=== PATIENT | female | born 2000 | race Caucasian/White ===

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

== ENCOUNTER 2020-09-02 10:47 | Emergency (ER) | payer OTHER, SELFPAY ==
[2020-09-02 11:20] VITALS: BP 130/84; PULSE 79; RESP 14; TEMP 36.7; O2SAT 99; BMI 33.3
[2020-09-02 11:32] LABS: UTC Strep Screen (Rapid) Negative (Negative)
--- NOTE | 2020-09-02 11:56 | HMH.EDUTC ---
[facility] [place] Clinical Impression: Bronchitis Disposition: Home, Self-Care Condition on Discharge: Good Instructions: Acute Bronchitis Additional Instructions: Start antibiotic today. Be sure to complete entire prescription even if feeling better Tylenol and ibuprofen as needed for pain or fever Humidifier/vaporizer/hot steamy shower Follow-up with primary care tomorrow. Follow-up immediately in the ER of the [facility] for new or worsening symptoms or no noticeable improvement over the next 48-72 hours. Stop smoking Inhaler every 4-6 hours as needed. Should help open airways improved cough, wheezing, shortness of breath Blair Moore will not cause drowsiness to use at bedtime to help stop cough so that she can get some sleep Start steroids today. Helps with inflammation therefore coughing and wheezing. Follow directions on package. Patient states they have taken them before. self isolate until test results are known to be neg Prescriptions: predniSONE [Prednisone 20mg Tab] 20 mg PO BID #10 tab Transmission Status: Pending to [employer] # Azithromycin [Zithromax 250mg tab] 250 mg PO DIRECTED #6 tab Transmission Status: Pending to [employer] # Referrals: Celina Nunez PA [Primary Care Provider] - Time of Disposition: 12:00 Medical Decision Making - Dionicio Inquiry Pt receiving controlled substance: No Vital Signs: 09/02/20 11:20 Temperature 98.0 F Temperature Source Oral Pulse Rate [Right] 79 Respiratory Rate 14 Blood Pressure [Right Arm] 130/84 Blood Pressure Mean [Right Arm] 99 Blood Pressure Source [Right Arm] Automatic Cuff Blood Pressure Position [Right Arm] Sitting 02 Sat by Pulse Oximetry 99 - Lab Data Lab Results 09/02/20 11:24: Strep Scn Rapid Clinic Negative Orders (Tests/Meds): ORDERS Category Date Time Status Covid-19 Nasal PCR ([facility]) Routine Lab 09/02/20 10:58 Received Strep Screen Confirmation Stat Micro 09/02/20 11:24 Received [facility] [place] H[place] - General Chief complaint: Urgent [facility] Stated complaint: covid test Time Seen by Provider: 09/02/20 11:56 Mode of Arrival: Ambulatory Source of Information: Patient Limitations: No Limitations Description of Symptoms (Recalled from Triage Doc. by RN): pt c/o SHEIKH, weak, body aches, sore throat, productive cough with green sputum and fever. HEENT Symptoms (Recalled from RN notes): Yes (sore throat and SHEIKH) Resp Symptoms (Recalled from RN notes): Yes (productive cough with green sputum) Skin Symptoms (Recalled from RN notes): No MS Symptoms (Recalled from RN notes): No Functional Status (Recalled from RN notes): na - History of Present Illness Provider Complaint: 20 yr old female presents for sore throat, cough, yellow/green sputum, body aches and fever for 1 week - Related Data Home Medications Medication Instructions Recorded Confirmed norgestimate-ethinyl estradioL 1 tab PO ONCE 11/06/17 11/10/17 [Tri-Sprintec Tablet] Previous Rx's Medication Instructions Recorded Azithromycin [Zithromax 250mg 250 mg PO DIRECTED #6 tab 09/02/20 tab] predniSONE [Prednisone 20mg 20 mg PO BID #10 tab 09/02/20 Tab] Allergies Allergy/AdvReac Type Severity Reaction Status Date / Time No Known Allergies Allergy Verified 10/16/17 10:42 - Worker's Comp Is this a Worker's Comp case?: No [facility] History - Hepatitis A Screen Drug use history?: No High risk sexual behaviors?: No History of sexually transmitted infection?: No Currently employed?: No Childcare worker?: No Do you have indoor plumbing?: Yes Do you have electricity?: Yes Attestation statement:: This patient has been screened for Hepatitis A risk factors. I have reviewed the patient's past medical history: Yes Medical History: Reports:: Anxiety Denies:: Asthma, Depression, Diabetes Mellitus Type 1, Hypertension, Migraine, MRSA, Seizures Other Surgeries: Yes: No Previous Surg
[2020-09-02 12:02] VITALS: BP 139/81; PULSE 71; RESP 19; TEMP 36.6
[2020-09-02 12:24] LABS: UTC Influenza A Antigen Negative (Negative)
[2020-09-02 12:25] LABS: UTC Influenza B Antigen Negative (Negative)
--- NOTE | 2020-09-02 17:02 | PC.NURSE ---
PT NOTIFIED OF POSITIVE COVID TEST RESULT
== END 2020-09-02 12:31 | disposition home or self-care (01) ==
PROVIDERS: Emergency Provider Nurse Practitioner Family; PCP Physician Assistant
DX: U07.1 COVID-19 (principal); J20.9 Acute bronchitis, unspecified; F41.9 Anxiety disorder, unspecified
CPT/HCPCS: 87804; 87880; 99202; G0463; U0003

== ENCOUNTER 2021-07-18 14:20 | Emergency (ER) | payer OTHER, SELFPAY ==
[2021-07-18 15:22] VITALS: BP 147/78; PULSE 107; RESP 19; TEMP 37.5; O2SAT 100; BMI 29.6
--- NOTE | 2021-07-18 15:43 | HMH.EDUTC ---
[facility] – [place] Disposition Clinical Impression: Viral syndrome Pharyngitis Qualifiers: Pharyngitis/tonsillitis etiology: unspecified etiology Qualified Code(s): J02.9 - Acute pharyngitis, unspecified Disposition: Home, Self-Care Condition on Discharge: Good Instructions: DI for Strep Throat, DI for Viral Syndrome, DI for COVID-19 (Suspected or Confirmed ), Preventing the Spread of Coronavirus Discharge Instructions Additional Instructions: Drink plenty of fluids. Take tylenol or ibuprofen for pain or fever. Take the medications as directed. Follow up with your regular doctor. GO TO THE ER FOR ANY WORSENING SYMPTOMS Quarantine until you know the results of your covid-19 test. Notify your school or workplace of your results and follow their instructions regarding return to work/school. Prescriptions: Brompheniramine/Pseudoephed/Dm [Bromfed Dm Cough Syrup] 5 ml PO Q6HP PRN #240 ml PRN Reason: Cough Transmission Status: Received by [employer] #[id number] Amoxicillin [Amoxicillin 500mg Tab] 500 mg PO TID 10 Days #30 tab Transmission Status: Received by [employer] #[id number] predniSONE [Deltasone 10mg tablet] 10 mg PO BID 3 Days #6 tab Transmission Status: Received by [employer] #[id number] Referrals: Devendra Landis MD [Primary Care Provider] - Time of Disposition: 16:05 Medical Decision Making - Medical Records Medical records reviewed: No: I reviewed the patient's medical records. - Dionicio Inquiry Pt receiving controlled substance: No Vital Signs: 07/18/21 15:22 07/18/21 16:30 Temperature 99.5 F 99.5 F Temperature Source Oral Pulse Rate 107 H Pulse Rate [Left] 107 H Respiratory Rate 19 19 Blood Pressure 147/78 H Blood Pressure [Right Arm] 147/78 H Blood Pressure Mean [Right Arm] 101 02 Sat by Pulse Oximetry 100 - Lab Data Lab results reviewed: Yes: I reviewed the patient's lab results. Lab Results 07/18/21 15:06: Group A Strep Rapid Negative Orders (Tests/Meds): ORDERS Category Date Time Status Strep Screen Confirmation Stat Micro 07/18/21 15:06 Received [facility] [place] HPI - General Stated complaint: cough, sore throat Time Seen by Provider: 07/18/21 15:44 Mode of Arrival: Ambulatory Source of Information: Patient Limitations: No Limitations Description of Symptoms (Recalled from Triage Doc. by RN): PT C/O A SORE THROAT SINCE YESTERDAY. HEENT Symptoms (Recalled from RN notes): Yes Resp Symptoms (Recalled from RN notes): No Skin Symptoms (Recalled from RN notes): No MS Symptoms (Recalled from RN notes): No Functional Status (Recalled from RN notes): WNL - Related Data Previous Rx's Medication Instructions Recorded hydrochlorothiazide 25 mg tablet 25 mg PO DAILY #90 tab 06/26/21 Amoxicillin [Amoxicillin 500mg Tab] 500 mg PO TID 10 Days #30 tab 07/18/21 Brompheniramine/Pseudoephed/Dm 5 ml PO Q6HP PRN #240 ml 07/18/21 [Bromfed Dm Cough Syrup] predniSONE [Deltasone 10mg tablet] 10 mg PO BID 3 Days #6 tab 07/18/21 Allergies Allergy/AdvReac Type Severity Reaction Status Date / Time No Known Allergies Allergy Verified 06/26/21 14:58 - Worker's Comp Is this a Worker's Comp case?: No [facility] History - Hepatitis A Screen Drug use history?: No High risk sexual behaviors?: No History of sexually transmitted infection?: No Currently employed?: No Childcare worker?: No Do you have indoor plumbing?: Yes Do you have electricity?: Yes Attestation statement:: This patient has been screened for Hepatitis A risk factors. I have reviewed the patient's past medical history: Yes Medical History: Reports:: Anxiety, Hypertension Denies:: Asthma, Depression, Diabetes Mellitus Type 1, Migraine, MRSA, Seizures Other Surgeries: Yes: No Previous Surgery Amputation: No Fractures: No - Social History Smoking Status: Current every day smoker Tobacco Type: cigarettes # Packs/Day (cigarettes): 1 Alcohol Intake: never Substance Use Type: den
[2021-07-18 15:45] LABS: Strep Scrn Group A (Rapid) Negative (Negative)
[2021-07-18 16:30] VITALS: BP 147/78; PULSE 107; RESP 19; TEMP 37.5
== END 2021-07-18 16:31 | disposition home or self-care (01) ==
PROVIDERS: Emergency Provider Nurse Practitioner Family; PCP Emergency Medicine
DX: B34.9 Viral infection, unspecified (principal); J02.9 Acute pharyngitis, unspecified; Z20.822 Contact with and (suspected) exposure to COVID-19
CPT/HCPCS: 87430; 99203; C9803; G0463; U0003; U0005

== ENCOUNTER 2021-11-15 21:28 | Emergency (ER) | payer OTHER, SELFPAY ==
[2021-11-15 21:29] VITALS: BP 145/84; PULSE 97; RESP 16; TEMP 37.3; O2SAT 100; BMI 28.1
[2021-11-15 21:50] LABS: Microscopic, Urine URINE MICROSCOPIC (MICROSCOPIC)
[2021-11-15 21:51] LABS: Appearance,Urine CLEAR (Clear); Bilirubin,Urine Negative (Negative); Blood, Urine Negative (Negative); Color,Urine YELLOW (Yellow); Glucose,Urine (UA) Negative (Negative); Ketones,Urine Negative (Negative); Leukocyte Esterase,Urine Negative (Negative); Nitrate,Urine Negative (Negative); Protein,Urine Negative (Negative)
[2021-11-15 22:00] LABS: Urine Pregnancy, HCG Qual. Positive (Negative)
[2021-11-15 22:06] LABS: Basophils # 0.2 K/mm3 (0-0.2); Basophils % 1.1 % (0.1-2.0); Eosinophils # 0.1 K/mm3 (0.0-0.4); Eosinophils % 0.9 % (0.1-12.0); Hematocrit 37.2 % (37.0-47.0); Hemoglobin 12.8 g/dL (12.2-16.2); Lymphocytes # 2.7 K/mm3 (0.7-4.5); Lymphocytes % 17.5 % (10-50); Mean Corpuscular HGB Conc 34.4 g/dL (31.8-35.4); Mean Corpuscular Hemoglobin 26.9 pg (27.0-31.2); Mean Corpuscular Volume 78.1 fl (81-99); Mean Platelet Volume 8.3 fl (7.4-10.4); Monocytes # 0.6 K/mm3 (0.1-1.0); Monocytes % 3.6 % (1.7-9.3); Neutrophils # 11.9 K/mm3 (1.8-7.8); Neutrophils % 76.8 % (37.0-80.0); Platelet Count 231 K/mm3 (142-424); Red Blood Count 4.76 M/mm3 (4.20-5.40); Red Cell Distribution Width 15.8 % (11.5-17.5); White Blood Count 15.5 K/mm3 (4.8-10.8)
[2021-11-15 22:07] LABS: Bacteria,Urine 1+ /lpf; WBC,Urine Occasional #/hpf (0-3)
--- NOTE | 2021-11-15 22:08 | HMH.EDGENADL ---
ED Disposition Clinical Impression: Pharyngitis Qualifiers: Pharyngitis/tonsillitis etiology: unspecified etiology Qualified Code(s): J02.9 - Acute pharyngitis, unspecified Qualifiers: Weeks of gestation: less than 8 weeks Qualified Code(s): Z3A.01 - Less than 8 weeks gestation of Disposition: Home, Self-Care Condition on Discharge: Good Instructions: DI for Pharyngitis/Tonsillopharyngitis -- Adult Additional Instructions: see pcp and ob for follow up Prescriptions: cephALEXin [cephALEXin 500mg capsule*] 500 mg PO TID #30 cap Transmission Status: Pending to [employer] #[id number] Referrals: Celina Nunez PA [Primary Care Provider] - Elly Roldan DO [Physician] - Bruce Gonzalez MD [Staff Physician] - Kassidy Marie MD [Staff Physician] - - Critical Care Critical Care Time: No Attestation: On 11/15/21, the high probability of a clinically significant, sudden or life threatening deterioration of the following system(s) required my full and direct attention, intervention and personal management. The time I documented below is in addition to time spent performing reported procedures but includes the following listed in this critical care notation. Medical Decision Making - Medical Records Medical records reviewed: Yes: I reviewed the patient's medical records. - Dionicio Inquiry Pt receiving controlled substance: No Vital Signs: 11/15/21 21:29 Temperature 99.1 F Temperature Source Oral Pulse Rate [Left Radial] 97 H Respiratory Rate 16 Blood Pressure [Right Arm] 145/84 H Blood Pressure Mean [Right Arm] 104 Blood Pressure Source [Right Arm] Automatic Cuff Blood Pressure Position [Right Arm] Sitting 02 Sat by Pulse Oximetry 100 Oxygen Delivery Method Room Air - Lab Data Lab results reviewed: Yes: I reviewed the patient's lab results. Lab Results 11/15/21 21:39: Urine Color Yellow, Urine Appearance Clear, Urine pH 7.0, Ur Specific [place] 1.020, Urine Protein Negative, Urine Glucose (UA) Negative, Urine Ketones Negative, Urine Blood Negative, Urine Nitrate Negative, Urine Bilirubin Negative, Urine Urobilinogen 1.0, Ur Leukocyte Esterase Negative, Urine WBC Occasional, Ur Squamous Epith Cells 3-5, Urine Bacteria 1+ 11/15/21 21:39: Urine HCG, Qual Positive 11/15/21 21:56: WBC 15.5 H, RBC 4.76, Hgb 12.8, Hct 37.2, MCV 78.1 L, MCH 26.9 L, MCHC 34.4, RDW 15.8, Plt Count 231, MPV 8.3, Neut % (Auto) 76.8, Lymph % (Auto) 17.5, [place] % (Auto) 3.6, Eos % (Auto) 0.9, Baso % (Auto) 1.1, Neut # (Auto) 11.9 H, Lymph # (Auto) 2.7, [place] # (Auto) 0.6, Eos # (Auto) 0.1, Baso # (Auto) 0.2, Total Counted 100, Neutrophils % (Manual) 81 H, Lymphocytes % (Manual) 17, Monocytes % (Manual) 2, Platelet Estimate Normal, Hypochromasia 2+, ESR 14 11/15/21 21:56: Sodium 135 L, Potassium 3.5, Chloride 103, Carbon Dioxide 25, Anion Gap 10.5, BUN 5 L, Creatinine 0.50 L, Estimated Creat Clear 229, Estimated GFR 156, Est GFR ( Amer) 188, Glucose 98, Calcium 8.9, Total Bilirubin < 0.1 L, AST 24, ALT 26, Alkaline Phosphatase 79, C-Reactive Protein 9.3 H, Total Protein 7.1, Albumin 4.3, Globulin 2.8, Albumin/Globulin Ratio 1.5 11/15/21 21:56: Lactate 0.6 L 11/15/21 21:56: HCG, Quant [id number] H 11/15/21 22:09: SARS-CoV-2 (PCR) Not detected, Influenza A Untype (PCR) Not detected, Influenza Type B (PCR) Not detected 11/15/21 22:09: Group A Strep Rapid Negative Result diagrams: 11/15/21 21:56 11/15/21 21:56 Orders (Tests/Meds): ED MEDICATIONS Generic Name Dose Route Start Last Admin Trade Name Freq PRN Reason Stop Dose Admin Sodium Chloride 1,000 mls @ 999 mls/hr 11/15/21 22:00 11/15/21 22:05 Sod Chlor 0.9% 1000ml Bag IV 11/15/21 23:00 999 mls/hr .Q1H1M SERAFIN Administration Sodium Chloride 10 ml 11/15/21 22:01 Sodium Chloride 0.9% 10ml Flush Syringe IV 12/15/21 22:00 NEEDED PRN Maintain IV Site Discontinued Medications Generic Name Dose Route Start Last Admin Trade Nam
[2021-11-15 22:09] LABS: MANUAL DIFFERENTIAL MANUAL DIFFERENTIAL (MANUAL DIFF)
[2021-11-15 22:15] LABS: Alanine Aminotransferase 26 U/L (12-78); Albumin Level 4.3 g/dl (3.5-5.0); Albumin/Globulin Ratio 1.5 (1.1-1.8); Alkaline Phosphatase 79 U/L (38-126); Anion Gap 10.5 mEq/L (5-15); Aspartate Amino Transferase 24 U/L (14-36); Blood Urea Nitrogen 5 mg/dl (7-17); Calcium 8.9 mg/dl (8.4-10.2); Carbon Dioxide 25 mmol/L (22.0-30.0); Chloride 103 mmol/L (98-107); Creatinine Clearance Estimated 229 mL/min (50-200); Estimated Glomerular Filt Rate 156 ml/min (>60); GFR (African American) 188 ML/MIN (>60); Globulin 2.8 g/dL (1.3-3.2); Glucose 98 mg/dl (74-100); Lactic Acid 0.6 mmol/L (0.7-2.1); Potassium 3.5 mmoL/L (3.5-5.1); Sodium 135 mmol/L (136-145); Total Protein,Serum 7.1 g/dl (6.3-8.2)
[2021-11-15 22:19] LABS: Bilirubin,Total < 0.1 mg/dl (0.2-1.3)
[2021-11-15 22:20] LABS: C-Reactive Protein 9.3 mg/L (0-4)
[2021-11-15 22:23] LABS: Coronavirus 19, PCR Not Detected (NotDetected); Influenza A, PCR Not Detected (NotDetected); Influenza B, PCR Not Detected (NotDetected)
[2021-11-15 22:32] LABS: Strep Scrn Group A (Rapid) Negative (Negative)
[2021-11-15 22:35] LABS: Hypochromasia 2+; Lymphocytes % 17 % (10-50); Monocytes % 2 % (2-9); Neutrophils % 81 % (42-76); Platelet Estimate Normal; Total Cells Counted 100
--- NOTE | 2021-11-15 22:35 | US_ITS ---
PROCEDURE INFORMATION: Exam: US , Transvaginal Exam date and time: 11/15/2021 11:26 PM Age: 21 years old Clinical indication: Other: Llq pain early ; Gestational age or lmp: Lmp 10/13/2021; ; Additional info: Ealry <4 wk, llq pain 2 days TECHNIQUE: Imaging protocol: Real-time transvaginal obstetrical ultrasound of the maternal pelvis with image documentation. Transvaginal imaging was used for better evaluation of the fetus, adnexa, and/or cervix. COMPARISON: ABDPELWO CT abdomen pelvis wo con 11/10/2017 3:49 PM FINDINGS: Gestation: Single intrauterine gestation. Yolk sac is 8 mm in cross-section. heart rate: heart rate 142 bpm. BIOMETRY: [place]-Rump length (CRL): [place]-rump length is 9.5 mm in length. IMPRESSION: 7 week 0 day intrauterine gestation with estimated date of delivery of July 04, 2022.
[2021-11-15 22:37] LABS: Erythrocyte Sedimentation Rate 14 mm/hr (0-20)
--- NOTE | 2021-11-15 22:39 | PC.NURSE ---
Called radiology to notify need of OB transvaginal u/s
--- NOTE | 2021-11-15 22:40 | PC.NURSE ---
Sarah Grover returned call, she will arrive soon.
--- NOTE | 2021-11-15 22:46 | PC.NURSE ---
Pt changed into a gown and given warm blankets. Educated on transvaginal u/s. Pt is crying and visibly upset, offered to called family or friend for support, pt declined at this time.
--- NOTE | 2021-11-15 23:19 | PC.NURSE ---
Pt gone to RAD for US
--- NOTE | 2021-11-15 23:19 | PC.NURSE ---
Called lab to check on time remaining on Beta HCG Quant, report 45 min left. They had to re-run the sample.
--- NOTE | 2021-11-15 23:48 | PC.NURSE ---
pt back to room via wheelchair
--- NOTE | 2021-11-16 00:39 | PC.NURSE ---
U/S prelim to Dr. Landis is viable intrauterine of 7w 1d. HR 142
[2021-11-16 01:01] VITALS: BP 122/73; PULSE 83; RESP 16; TEMP 37.2; O2SAT 100
== END 2021-11-16 01:03 | disposition home or self-care (01) ==
PROVIDERS: Emergency Provider Emergency Medicine; PCP Physician Assistant
DX: O21.9 Vomiting of pregnancy, unspecified; Z20.822 Contact with and (suspected) exposure to COVID-19; O26.91 Pregnancy related conditions, unspecified, first trimester; J02.9 Acute pharyngitis, unspecified; O99.341 Other mental disorders complicating pregnancy, first trimester; F41.9 Anxiety disorder, unspecified; O16.1 Unspecified maternal hypertension, first trimester; O26.891 Other specified pregnancy related conditions, first trimester; R10.9 Unspecified abdominal pain; O26.811 Pregnancy related exhaustion and fatigue, first trimester; R51.9 Headache, unspecified; O99.331 Smoking (tobacco) complicating pregnancy, first trimester; Z3A.01 Less than 8 weeks gestation of pregnancy; Z82.49 Family history of ischemic heart disease and other diseases of the circulatory system; Z83.3 Family history of diabetes mellitus; Z80.9 Family history of malignant neoplasm, unspecified
CPT/HCPCS: 76817; 80053; 81001; 81025; 83605; 84702; 85007; 85025; 85651; 86140; 87430; 96361; 96374; 99284; C9803; J2405; U0003; U0005

== ENCOUNTER 2021-12-18 15:24 | Emergency (ER) | payer OTHER, SELFPAY ==
[2021-12-18 15:26] VITALS: BP 149/80; PULSE 93; RESP 18; TEMP 37.1; O2SAT 97; BMI 29.0
[2021-12-18 16:00] VITALS: BP 126/71; PULSE 88; O2SAT 100
[2021-12-18 16:04] LABS: Chloride 106 mmol/L (98-107); Potassium 4.5 mmoL/L (3.5-5.1); Sodium 137 mmol/L (136-145)
[2021-12-18 16:05] LABS: Basophils # 0.1 K/mm3 (0-0.2); Basophils % 0.7 % (0.1-2.0); Eosinophils # 0.2 K/mm3 (0.0-0.4); Eosinophils % 2.5 % (0.1-12.0); Hematocrit 36.5 % (37.0-47.0); Hemoglobin 13.1 g/dL (12.2-16.2); Lymphocytes % 36.3 % (10-50); Mean Corpuscular HGB Conc 35.8 g/dL (31.8-35.4); Mean Corpuscular Hemoglobin 27.1 pg (27.0-31.2); Mean Corpuscular Volume 75.6 fl (81-99); Mean Platelet Volume 8.9 fl (7.4-10.4); Monocytes # 0.5 K/mm3 (0.1-1.0); Monocytes % 6.2 % (1.7-9.3); Neutrophils # 4.5 K/mm3 (1.8-7.8); Neutrophils % 54.3 % (37.0-80.0); Platelet Count 219 K/mm3 (142-424); Red Blood Count 4.82 M/mm3 (4.20-5.40); Red Cell Distribution Width 15.2 % (11.5-17.5); White Blood Count 8.3 K/mm3 (4.8-10.8)
[2021-12-18 16:07] LABS: Alanine Aminotransferase 27 U/L (12-78); Albumin Level 4.8 g/dl (3.5-5.0); Albumin/Globulin Ratio 1.5 (1.1-1.8); Alkaline Phosphatase 80 U/L (38-126); Anion Gap 13.5 mEq/L (5-15); Aspartate Amino Transferase 55 U/L (14-36); Bilirubin,Total 0.9 mg/dl (0.2-1.3); Blood Urea Nitrogen 12 mg/dl (7-17); Carbon Dioxide 22 mmol/L (22.0-30.0); Creatinine Clearance Estimated 191 mL/min (50-200); Estimated Glomerular Filt Rate 126 ml/min (>60); GFR (African American) 153 ML/MIN (>60); Globulin 3.1 g/dL (1.3-3.2); Total Protein,Serum 7.9 g/dl (6.3-8.2)
[2021-12-18 16:08] LABS: Calcium 9.6 mg/dl (8.4-10.2); Glucose 97 mg/dl (74-100)
[2021-12-18 16:24] LABS: HCG,Quantitative 18 mIU/ml (0-5.42)
[2021-12-18 16:30] VITALS: BP 140/83; PULSE 87; O2SAT 98
--- NOTE | 2021-12-18 16:56 | HMH.EDGENADL ---
ED Disposition Clinical Impression: Complete miscarriage Disposition: Home, Self-Care Condition on Discharge: Good Instructions: DI for Miscarriage Additional Instructions: Follow-up with your SITE DAMAGE PREVENTION TECHNICIAN, call tomorrow to make appointment. Return to the emergency department if any severe pain or severe bleeding. Referrals: Devendra Landis MD [Primary Care Provider] - - Critical Care Critical Care Time: No Attestation: On 12/18/21, the high probability of a clinically significant, sudden or life threatening deterioration of the following system(s) required my full and direct attention, intervention and personal management. The time I documented below is in addition to time spent performing reported procedures but includes the following listed in this critical care notation. Medical Decision Making - Dionicio Inquiry Pt receiving controlled substance: No Vital Signs: 12/18/21 15:26 12/18/21 16:00 12/18/21 16:30 Temperature 98.8 F Temperature Source Oral Pulse Rate 88 87 Pulse Rate [Left Radial] 93 H Respiratory Rate 18 Blood Pressure 126/71 140/83 Blood Pressure [Right Arm] 149/80 H Blood Pressure Mean 89 92 Blood Pressure Mean [Right Arm] 103 Blood Pressure Source [Right Arm] Automatic Cuff Blood Pressure Position [Right Arm] Sitting 02 Sat by Pulse Oximetry 97 100 98 Oxygen Delivery Method Room Air - Lab Data Lab Results 12/18/21 15:37: WBC 8.3, RBC 4.82, Hgb 13.1, Hct 36.5 L, MCV 75.6 L, MCH 27.1, MCHC 35.8 H, RDW 15.2, Plt Count 219, MPV 8.9, Neut % (Auto) 54.3, Lymph % (Auto) 36.3, [place] % (Auto) 6.2, Eos % (Auto) 2.5, Baso % (Auto) 0.7, Neut # (Auto) 4.5, Lymph # (Auto) 3.0, [place] # (Auto) 0.5, Eos # (Auto) 0.2, Baso # (Auto) 0.1 12/18/21 15:37: Sodium 137, Potassium 4.5, Chloride 106, Carbon Dioxide 22, Anion Gap 13.5, BUN 12, Creatinine 0.60, Estimated Creat Clear 191, Estimated GFR 126, Est GFR ( Amer) 153, Glucose 97, Calcium 9.6, Total Bilirubin 0.9, AST 55 H, ALT 27, Alkaline Phosphatase 80, Total Protein 7.9, Albumin 4.8, Globulin 3.1, Albumin/Globulin Ratio 1.5, HCG, Quant 18 H 12/18/21 16:40: Blood Type B Positive Result diagrams: 12/18/21 15:37 12/18/21 15:37 Orders (Tests/Meds): ORDERS Category Date Time Status US OB transvaginal Stat Ultrasound 12/18/21 16:57 Taken - US Data US Images: Pelvis Findings Narrative: As per [facility] procedure, ultrasound report received from automation technician: Complete miscarriage, normal ovaries. General Adult HPI - General Chief complaint: Recheck/Abnormal Lab/Rx Stated complaint: possiible miscarage Time Seen by Provider: 12/18/21 16:56 Mode of Arrival: Ambulatory Limitations: No Limitations Description of Symptoms (Recalled from ER Triage Doc. by RN): C/O INCREASED BREAST TENDERNESS AND MILK COMING OUT. STATES SHE IS SUPPOSE TO BE 11 WEEKS BUT 2 DAYS AGO SHE HAD BEEN BLEEDING FOR 2 WEEKS WITH DARK BLOOD. HER OBGYN STATES THAT WAS NORMAL WHEN SHE CALLED BUT HER SYMPTOMS OF CHANGED AND SHE IS AFRAID SHE MISCARRIED. - History of Present Illness HPI narrative: The patient is 3, para 2, 11 weeks gestation . She has had a previous pelvic ultrasound at this facility when she was 7 weeks which showed an IUP. She presents now with vaginal bleeding for 2 weeks which stopped 2 days ago. She has not yet had care, but has been in touch with her SITE DAMAGE PREVENTION TECHNICIAN. She says she has an ovarian cyst that was discovered on her ultrasound. - Related Data Previous Rx's Medication Instructions Recorded cephALEXin [cephALEXin 500mg 500 mg PO TID #30 cap 11/16/21 capsule*] Allergies Allergy/AdvReac Type Severity Reaction Status Date / Time No Known Allergies Allergy Verified 06/26/21 14:58 [facility] History - Hepatitis A Screen Attestation statement:: This patient has been screened for Hepatitis A risk factors. I have reviewed the patient's past medical history:
--- NOTE | 2021-12-18 16:57 | US_ITS ---
PROCEDURE INFORMATION: Exam: US , Transvaginal Exam date and time: 12/18/2021 5:15 PM Age: 21 years old Clinical indication: Lmp or gestational age (in weeks): 11 w 5 d; Antepartum complications; Bleeding; ; Additional info: Bleeding, , R/O ectopic or miscarriage TECHNIQUE: Imaging protocol: Real-time transvaginal obstetrical ultrasound of the maternal pelvis with image documentation. Transvaginal imaging was used for better evaluation of the fetus, adnexa, and/or cervix. COMPARISON: US OB TRANSVAGINAL 11/15/2021 11:26 PM FINDINGS: Gestation: No intrauterine gestation is visualized. MATERNAL: Uterus: Uterus measures 6.4 x 4.2 x 4.7 cm. Endometrium measures 7 mm. Right ovary/adnexa: Right ovary measures 2.7 x 1.6 x 3.4 cm. Small cyst or dominant follicle involving the right ovary. Left ovary/adnexa: Left ovary measures 2.8 x 1.4 x 2.3 cm. Left ovary appears within normal limits. Intraperitoneal space: No pathologic free fluid is visualized. IMPRESSION: 1. No definite intrauterine gestation is visualized. 2. No adnexal mass or pathologic free fluid.
--- NOTE | 2021-12-18 16:57 | PC.NURSE ---
RADIOLOGY NOTIFIED OF TRANSVAGINAL US ORDER
--- NOTE | 2021-12-18 17:14 | PC.NURSE ---
PT TO RADIOLOGY FOR US
--- NOTE | 2021-12-18 17:14 | PC.NURSE ---
pt to US via wc with emergency medical technician basic
--- NOTE | 2021-12-18 17:21 | PC.NURSE ---
PT WENT FOR AN US
--- NOTE | 2021-12-18 17:40 | PC.NURSE ---
[facility] GAVE DR JARA REPORT ON TRANSVAG
--- NOTE | 2021-12-18 17:40 | PC.NURSE ---
pt retruns from US via wc with technical support representative
--- NOTE | 2021-12-18 17:42 | PC.NURSE ---
ER at speaking with patient regarding imaging results
[2021-12-18 18:10] VITALS: BP 141/71; PULSE 84; RESP 18; TEMP 37.1; O2SAT 97
== END 2021-12-18 18:11 | disposition home or self-care (01) ==
PROVIDERS: Emergency Provider Emergency Medicine; PCP Emergency Medicine
DX: O03.9 Complete or unspecified spontaneous abortion without complication (principal)
CPT/HCPCS: 76817; 80053; 84702; 85025; 86900; 86901; 99283

== ENCOUNTER 2022-04-06 13:37 | Emergency (ER) | payer OTHER, SELFPAY ==
[2022-04-06 13:38] VITALS: BP 162/96; PULSE 96; RESP 18; TEMP 36.8; O2SAT 99; BMI 27.9
--- NOTE | 2022-04-06 13:53 | XR_ITS ---
PROCEDURE INFORMATION: Exam: XR Chest Exam date and time: 04/06/2022 2:56 PM Age: 22 years old Clinical indication: Pain; Chest pressure TECHNIQUE: Imaging protocol: Radiologic exam of the chest. Views: 2 views. COMPARISON: CT ANGIO CHEST PE PROTOCOL 04/06/2022 2:53 PM FINDINGS: Lungs: Unremarkable. No consolidation. Pleural spaces: Unremarkable. No pleural effusion. No pneumothorax. Heart/Mediastinum: Unremarkable. No cardiomegaly. Bones/joints: Mild dextroscoliosis of the thoracic spine. IMPRESSION: No acute findings.
--- NOTE | 2022-04-06 14:02 | ECG_ITS ---
APPROVED REPORT Exam: Resting ECG HR:77 bpm ECG Measurements Heart Rate [address] 154 P 43 QRSd 90 QRS 67 QT 378 T 22 QTc 409 Conclusion SINUS RHYTHM NORMAL ECG UNCONFIRMED REPORT Electronically signed by : Jonn Ribeiro MD 04/07/2022 08:52:54
--- NOTE | 2022-04-06 14:04 | HMH.EDGENADL ---
Discharge Plan Disposition Patient Disposition: Home, Self-Care Condition: Good Prescriptions Prescriptions: New ondansetron 4 mg tablet,disintegrating 4 mg PO Q8H PRN (Reason: nausea and vomiting) Qty: 10 0RF Referrals Follow up/Referrals: Devendra Landis MD [Primary Care Provider] - See instructions Activity Restrictions/Add. Instructions Additional Instructions/Restrictions: Zofran as needed for nausea. Tylenol or ibuprofen as needed for pain. Follow-up with Dr. Gonzalez to discuss possible removal of control implant, call Friday for appointment. Additional instructions for HEADACHE: See your physician as soon as possible for further evaluation. Return immediately if worsening headache, vomiting, problems with vision or speech, fever, numbness or weakness of the extremities, neck pain or stiffness. Additional instructions for CHEST PAIN: See your physician as soon as possible for further evaluation. Return immediately if worsening chest pain, vomiting, shortness of breath, fever, coughing of blood. Clinical Impressions Clinical Impression: Headache, Chest pain Instructions Patient Instructions: DI for Headache, DI for Chest Pain Discharge ED Provider: Javier Cabello General Adult HPI General Chief complaint: Headache Stated complaint: Headache,Tingling in arm, Nauses Time Seen by Provider: 04/06/22 13:50 Mode of Arrival: Ambulatory Source of Information: Patient Limitations: No Limitations Description of Symptoms (Recalled from ER Triage Doc. by RN): c/o tingling down her arm from her new control that was placed 2 months ago, when she gets tingling in her arm she has chest pain and continous SHEIKH since placement History of Present Illness HPI narrative: Patient states that she had a contraceptive power placed in her left arm a couple of months ago. She relates her onset of symptoms to that procedure. States that since then she has had severe headaches 2-3 times per week which she describes as migraines. She has never been diagnosed with migraines in the past and prior to that procedure says she never had severe headaches. She says that since last night she has had a severe headache with 2-3 episodes of vomiting. Headache is now improved, but still nauseated. Also says that she has had intermittent chest pains in the sternal area for the past month that last 5 to 6 minutes at a time. Denies shortness of breath. Also says that she gets tingling in her left arm. She has had the same contraceptive device previously in the past and had no problems from it. She has not contacted Dr. Gonzalez, who placed the device. Related Data Previous Rx's Medication Instructions Recorded ondansetron 4 mg disintegrating 4 mg PO Q8H PRN nausea and 04/06/22 tablet vomiting #10 tabs Allergies Allergy/AdvReac Type Severity Reaction Status Date / Time No Known Allergies Allergy Verified 01/02/22 15:41 [facility] Medical History (Updated 04/06/22 @ 16:17 by Javier Cabello MD) Abdominal pain Social History Smoking Status: Current every day smoker tobacco type: cigarettes packs per day: 1 alcohol intake: never substance use type: denies use current occupational status: unemployed Travel in the last 8 weeks: None housing: house ROS Obtained: Yes Systems reviewed as appropriate & no additional complaints except as documented Constitutional Constitutional: Denies fever(s), Reports headache(s) and Denies weakness ENT Ears, Nose, Mouth, and Throat: Reports headache(s), Denies nasal discharge and Denies sore throat Cardiovascular Cardiovascular: Reports chest pain Respiratory Respiratory: Denies shortness of breath and Denies cough Gastrointestinal Gastrointestingal: Reports vomiting; Denies abdominal pain, constipation or diarrhea Genitourinary Female Genitourinary: Denies difficulty voiding, Denies dysuria and Denies flank pain Musculoskeletal Musculoskeletal: Denies n
[2022-04-06 14:06] LABS: Basophils # 0.3 K/mm3 (0-0.2); Basophils % 2.8 % (0.1-2.0); Eosinophils # 0.1 K/mm3 (0.0-0.4); Hematocrit 44.8 % (37.0-47.0); Hemoglobin 14.4 g/dL (12.2-16.2); Lymphocytes # 1.8 K/mm3 (0.7-4.5); Lymphocytes % 17.5 % (10-50); Mean Corpuscular HGB Conc 32.2 g/dL (31.8-35.4); Mean Corpuscular Hemoglobin 26.4 pg (27.0-31.2); Mean Platelet Volume 8.7 fl (7.4-10.4); Monocytes # 0.5 K/mm3 (0.1-1.0); Monocytes % 4.5 % (1.7-9.3); Neutrophils # 7.6 K/mm3 (1.8-7.8); Neutrophils % 74.2 % (37.0-80.0); Platelet Count 224 K/mm3 (142-424); Red Blood Count 5.47 M/mm3 (4.20-5.40); Red Cell Distribution Width 15.1 % (11.5-17.5); White Blood Count 10.2 K/mm3 (4.8-10.8)
--- NOTE | 2022-04-06 14:11 | CT_ITS ---
PROCEDURE INFORMATION: Exam: CT Head Without Contrast Exam date and time: 04/06/2022 2:47 PM Age: 22 years old Clinical indication: Pain; Headache not specified; Additional info: Severe headaches TECHNIQUE: Imaging protocol: Computed tomography of the head without contrast. Radiation optimization: All CT scans at this facility use at least one of these dose optimization techniques: automated exposure control; mA and/or kV adjustment per patient size (includes targeted exams where dose is matched to clinical indication); or iterative reconstruction. COMPARISON: No relevant prior studies available. FINDINGS: Brain: Normal. No hemorrhage. Unremarkable white matter. No mass effect. Cerebral ventricles: No ventriculomegaly. Paranasal sinuses: Visualized sinuses are unremarkable. No fluid levels. Mastoid air cells: Visualized mastoid air cells are well aerated. Bones/joints: Unremarkable. No acute fracture. Soft tissues: Unremarkable. IMPRESSION: No acute intracranial abnormality.
[2022-04-06 14:12] LABS: Chloride 103 mmol/L (98-107)
[2022-04-06 14:13] LABS: Potassium 4.1 mmoL/L (3.5-5.1); Sodium 140 mmol/L (136-145)
[2022-04-06 14:16] LABS: Anion Gap 14.1 mEq/L (5-15); Blood Urea Nitrogen 9 mg/dl (7-17); Calcium 9.4 mg/dl (8.4-10.2); Carbon Dioxide 27 mmol/L (22.0-30.0); Creatinine Clearance Estimated 182 mL/min (50-200); Estimated Glomerular Filt Rate 125 ml/min (>60); GFR (African American) 151 ML/MIN (>60); Glucose 88 mg/dl (74-100)
[2022-04-06 14:28] LABS: D-Dimer 0.59 ug/mL (0.0-0.5)
[2022-04-06 14:29] LABS: Troponin I < 0.01 ng/ml (0.00-0.034)
--- NOTE | 2022-04-06 14:34 | CT_ITS ---
PROCEDURE INFORMATION: Exam: CTA Chest With Contrast Exam date and time: 04/06/2022 2:53 PM Age: 22 years old Clinical indication: Pain; Chest pressure; Additional info: Chest pain, elev d-dimer TECHNIQUE: Imaging protocol: Computed tomographic angiography of the chest with contrast. 3D rendering (Not supervised by radiologist): MIP and/or 3D reconstructed images were created by the technologist. Radiation optimization: All CT scans at this facility use at least one of these dose optimization techniques: automated exposure control; mA and/or kV adjustment per patient size (includes targeted exams where dose is matched to clinical indication); or iterative reconstruction. Contrast material: ISOVUE; Contrast volume: 75 ml; Contrast route: INTRAVENOUS (IV); COMPARISON: ABDPELW CT abdomen pelvis wo con 11/10/2017 3:49 PM FINDINGS: Pulmonary arteries: Adequate pulmonary vascular opacification is present. Evaluation of the pulmonary arterial vessels demonstrates no CT evidence of pulmonary embolus. Aorta: Unremarkable. No aortic aneurysm. No aortic dissection. Lungs: Unremarkable. No consolidation. No masses. Pleural spaces: Unremarkable. No pneumothorax. No pleural effusion. Heart: Unremarkable. No cardiomegaly. No pericardial effusion. Lymph nodes: Unremarkable. No enlarged lymph nodes. Bones/joints: Mild dextroscoliosis of the thoracic spine. Soft tissues: Unremarkable. IMPRESSION: Adequate pulmonary vascular opacification is present. Evaluation of the pulmonary arterial vessels demonstrates no CT evidence of pulmonary embolus.
--- NOTE | 2022-04-06 14:38 | PC.NURSE ---
PT MEDICATED PER EMAR, NO NEEDS AT THIS TIME
[2022-04-06 14:46] LABS: HCG Qualitative, Serum Negative (Negative)
--- NOTE | 2022-04-06 14:50 | PC.NURSE ---
PT TO CT AT THIS TIME
[2022-04-06 16:32] VITALS: BP 135/72; PULSE 73; RESP 18; TEMP 36.8; O2SAT 99
== END 2022-04-06 16:33 | disposition home or self-care (01) ==
PROVIDERS: Emergency Provider Emergency Medicine; PCP Emergency Medicine
DX: R51.9 Headache, unspecified (principal); R07.9 Chest pain, unspecified; Z79.3 Long term (current) use of hormonal contraceptives
CPT/HCPCS: 70450; 71046; 71275; 80048; 84484; 84703; 85025; 85378; 93005; 96365; 96375; 99284; J2405; Q9967

== ENCOUNTER 2022-07-11 18:51 | Emergency (ER) | payer OTHER, SELFPAY ==
[2022-07-11 18:51] VITALS: BP 132/88; PULSE 84; RESP 13; TEMP 36.9; O2SAT 95; BMI 24.5
--- NOTE | 2022-07-11 18:53 | ECG_ITS ---
APPROVED REPORT Exam: Resting ECG HR:82 bpm ECG Measurements Heart Rate 82 AXES IN 151 P 30 QRSd 92 QRS 70 QT 364 T 22 QTc 402 Conclusion SINUS RHYTHM POSSIBLE RIGHT VENTRICULAR CONDUCTION DELAY [RSR (QR) IN V1/V2] BORDERLINE ECG UNCONFIRMED REPORT Electronically signed by : Jonn Ribeiro MD 07/13/2022 12:10:44
--- NOTE | 2022-07-11 19:14 | XR_ITS ---
PROCEDURE INFORMATION: Exam: XR Chest Exam date and time: 07/11/2022 8:03 PM Age: 22 years old Clinical indication: Sternal or substernal pain; Additional info: Chest pain TECHNIQUE: Imaging protocol: Radiologic exam of the chest. Views: 2 views. COMPARISON: CR XR CHEST 2V 04/06/2022 2:56 PM FINDINGS: Lungs: Unremarkable. No consolidation. Pleural spaces: Unremarkable. No pleural effusion. No pneumothorax. Heart/Mediastinum: Unremarkable. No cardiomegaly. Bones/joints: Mild right convex thoracic spinal scoliosis is unchanged. IMPRESSION: No acute findings.
[2022-07-11 19:33] LABS: Alanine Aminotransferase 30 U/L (12-78); Albumin Level 4.5 g/dl (3.5-5.0); Albumin/Globulin Ratio 1.5 (1.1-1.8); Alkaline Phosphatase 91 U/L (38-126); Anion Gap 9.5 mEq/L (5-15); Aspartate Amino Transferase 28 U/L (14-36); Bilirubin,Total 0.3 mg/dl (0.2-1.3); Blood Urea Nitrogen 11 mg/dl (7-17); Carbon Dioxide 29 mmol/L (22.0-30.0); Chloride 105 mmol/L (98-107); Creatinine Clearance Estimated 160 mL/min (50-200); Estimated Glomerular Filt Rate 125 ml/min (>60); GFR (African American) 151 ML/MIN (>60); Glucose 91 mg/dl (74-100); Potassium 3.5 mmoL/L (3.5-5.1); Sodium 140 mmol/L (136-145); Total Protein,Serum 7.5 g/dl (6.3-8.2)
[2022-07-11 19:45] LABS: Troponin I < 0.01 ng/ml (0.00-0.034)
[2022-07-11 19:47] LABS: Basophils # 0.1 K/mm3 (0-0.2); Eosinophils # 0.1 K/mm3 (0.0-0.4); Eosinophils % 0.6 % (0.1-12.0); Hematocrit 38.6 % (37.0-47.0); Lymphocytes # 3.3 K/mm3 (0.7-4.5); Lymphocytes % 27.5 % (10-50); Mean Corpuscular HGB Conc 33.5 g/dL (31.8-35.4); Mean Corpuscular Hemoglobin 27.6 pg (27.0-31.2); Mean Corpuscular Volume 82.3 fl (81-99); Monocytes # 0.5 K/mm3 (0.1-1.0); Monocytes % 3.9 % (1.7-9.3); Neutrophils # 7.9 K/mm3 (1.8-7.8); Platelet Count 240 K/mm3 (142-424); Red Blood Count 4.69 M/mm3 (4.20-5.40); Red Cell Distribution Width 15.1 % (11.5-17.5); White Blood Count 11.8 K/mm3 (4.8-10.8)
[2022-07-11 19:51] LABS: Microscopic, Urine URINE MICROSCOPIC (MICROSCOPIC)
[2022-07-11 19:59] LABS: Appearance,Urine CLEAR (Clear); Bilirubin,Urine Negative (Negative); Blood, Urine 1+ (Negative); Color,Urine YELLOW (Yellow); Glucose,Urine (UA) Negative (Negative); Ketones,Urine Negative (Negative); Leukocyte Esterase,Urine Negative (Negative); Nitrate,Urine Negative (Negative); Protein,Urine Negative (Negative); Specific Gravity, Urine >= 1.030 (1.005-1.030); Urobilinogen,Urine 0.2 EU/dl (0.2)
[2022-07-11 20:03] LABS: Urine Pregnancy, HCG Qual. Negative (Negative)
[2022-07-11 20:30] VITALS: PULSE 74; O2SAT 98
[2022-07-11 20:42] LABS: Erythrocyte Sedimentation Rate 19 mm/hr (0-20)
--- NOTE | 2022-07-11 22:07 | PC.NURSE ---
Second trop drawn and sent to LAB. No other needs or complaints voiced at this time.
--- NOTE | 2022-07-11 22:22 | HMH.EDCP ---
Discharge Plan Disposition Patient Disposition: Home, Self-Care Prescriptions Prescriptions: New pantoprazole [Protonix] 40 mg tablet,delayed release (DR/EC) 40 mg PO DAILY 28 Days Qty: 28 0RF minocycline 100 mg Capsule 100 mg PO BID Qty: 14 0RF No Action norgestimate-ethinyl estradiol [Sprintec (28)] 0.25-35 mg-mcg tablet 1 tab PO DAILY Qty: 28 11RF Referrals Follow up/Referrals: Provider,Referral, MD [Primary Care Provider] - See instructions Clinical Impressions Clinical Impression: Chest pain in adult, Folliculitis, Atypical chest pain Instructions Patient Instructions: DI for Atypical Chest Pain, DI for Folliculitis Discharge ED Provider: Boby (ED)Devendra Chest Pain HPI General Chief Complaint: Chest Pain Stated Complaint: cp Time Seen by Provider: 07/11/22 22:22 Mode of Arrival: Ambulatory Source of Information: Patient and Medical Record Limitations: No Limitations Description of Symptoms (Recalled from ER Triage Doc. by RN): pt c/o chest pain earlier today pt states she has been having chest pain bilateraly and in the mid sternal area the pt states that the pain started a few weeks ago and that it comes on and is sharp about a 9/10 but she also has had a nauseating head ache as well she stated it makes her feel sick in the Head History of Present Illness HPI narrative: has ant midline chest pain episodes with element of rad to back and epigastric pain - no ivdu. no known card dis, has been present for a few weeks - some nausea - no recent viral illness complaint: chest pain Onset (ago): day(s) Duration: intermittent Pain location: substernal and epigastric Severity: moderate Quality: aching Pain radiation: back Risk Factors for CAD: Family Hx of CAD Treatments prior to or on arrival for Cardiac Chest Pain: none ANITA Score for Non-Stemi Age of Patient: <30 years old Heart Rate: 70-89 bpm Systolic Blood Pressure: 120-139 mmhg Serum Creatinine: 0.40-0.79 mg/dl CHF Killip Class: I-No CHF Other Risk Factors: None Non-Stemi Risk Score: 47 Risk Stratification: 1-108 = Low Risk Related Data On Oral Contraceptives: Yes Previous Rx's Medication Instructions Recorded norgestimate 0.25 mg-ethinyl 1 tab PO DAILY #28 tabs 07/09/22 estradiol 35 mcg tablet (Sprintec (28)) minocycline 100 mg capsule 100 mg PO BID #14 caps 07/11/22 pantoprazole 40 mg tablet,delayed 40 mg PO DAILY 4 weeks #28 tabs 07/11/22 release (Protonix) Allergies Allergy/AdvReac Type Severity Reaction Status Date / Time No Known Allergies Allergy Verified 07/09/22 15:42 [facility] Disclaimer: The information contained in this section may have been updated after the patient was seen, as this information can be updated by other users. Medical History Abdominal pain History of hypertension Family History Other Alcoholism Cancer Coronary artery disease Diabetes Heart attack Hypertension Stroke Substance abuse Thyroid disorder Social History Smoking Status: Current every day smoker tobacco type: cigarettes packs per day: 1 alcohol intake: never substance use type: denies use current occupational status: unemployed Travel in the last 8 weeks: None housing: house ROS Obtained: Yes All systems reviewed & no additional complaints except as documented Physical Exam General General appearance: alert Head Head exam: normocephalic Eye Eye exam: Present PERRL and EOMI ENT ENT exam: Present mucous membranes moist Neck Neck exam: Present trachea midline Respiratory Respiratory exam: Absent respiratory distress Cardiovascular Cardiovascular exam: Present regular rate; Absent systolic murmur Abdominal Exam Abdominal exam: Present soft; Absent tenderness or guarding External exam: Present other (scatter are
--- NOTE | 2022-07-11 22:22 | PC.NURSE ---
Dr. Landis and Licha RN at at this time.
[2022-07-11 22:26] LABS: RBC,Urine Occasional #/hpf (0-3)
[2022-07-11 22:34] LABS: Bacteria,Urine 1+ /lpf
[2022-07-11 22:43] VITALS: BP 115/73; PULSE 74; PULSE 80; RESP 16; TEMP 36.9; O2SAT 99
[2022-07-11 22:44] LABS: Troponin I < 0.01 ng/ml (0.00-0.034)
== END 2022-07-11 22:45 | disposition home or self-care (01) ==
PROVIDERS: Emergency Provider Emergency Medicine
DX: R07.89 Other chest pain (principal); L73.9 Follicular disorder, unspecified; I10 Essential (primary) hypertension; Z80.9 Family history of malignant neoplasm, unspecified; Z83.3 Family history of diabetes mellitus; Z82.49 Family history of ischemic heart disease and other diseases of the circulatory system; Z82.3 Family history of stroke; Z81.1 Family history of alcohol abuse and dependence; Z81.4 Family history of other substance abuse and dependence; Z83.49 Family history of other endocrine, nutritional and metabolic diseases; F17.210 Nicotine dependence, cigarettes, uncomplicated
CPT/HCPCS: 71046; 80053; 81001; 81025; 84145; 84484; 85025; 85651; 93005; 99285

== ENCOUNTER → 2022-10-18 10:44 | Outpatient (CLI) | payer OTHER, SELFPAY ==
[2022-10-18 11:49] LABS: Basophils % 0.4 % (0.1-2.0); Eosinophils # 0.1 K/mm3 (0.0-0.4); Eosinophils % 1.3 % (0.1-12.0); Hematocrit 38.1 % (37.0-47.0); Hemoglobin 12.7 g/dL (12.2-16.2); Lymphocytes # 1.8 K/mm3 (0.7-4.5); Lymphocytes % 19.4 % (10-50); Mean Corpuscular HGB Conc 33.3 g/dL (31.8-35.4); Mean Corpuscular Hemoglobin 27.3 pg (27.0-31.2); Mean Corpuscular Volume 82.1 fl (81-99); Mean Platelet Volume 8.3 fl (7.4-10.4); Monocytes # 0.4 K/mm3 (0.1-1.0); Monocytes % 4.8 % (1.7-9.3); Neutrophils # 6.8 K/mm3 (1.8-7.8); Neutrophils % 74.2 % (37.0-80.0); Platelet Count 215 K/mm3 (142-424); Red Blood Count 4.64 M/mm3 (4.20-5.40); White Blood Count 9.1 K/mm3 (4.8-10.8)
[2022-10-19 08:03] LABS: Rubella Antibodies, IgG 7.13 index (Immune >0.99)
[2022-10-19 12:10] LABS: HIV Screen 4th Generation wRfx Non Reactive (Non Reactive); Rapid Plasma Reagin Ab Titer Non Reactive (NonRea<1:1)
[2022-10-21 15:09] LABS: Neisseria gonorrhoeae, NAA Negative (Negative)
[2022-11-17 21:18] LABS: Hepatitis B Surface Antigen Negative; Hepatitis C Antibody Non Reactive
== END ==
PROVIDERS: PCP Emergency Medicine; Visit Provider Obstetrics & Gynecology
DX: Z34.90 Encounter for supervision of normal pregnancy, unspecified, unspecified trimester (principal); Z3A.01 Less than 8 weeks gestation of pregnancy
CPT/HCPCS: 36415; 85025; 86593; 86703; 86762; 86850; 87340; 87380; 87491; 87591; G0432

== ENCOUNTER → 2022-12-31 09:30 | Outpatient (CLI) | payer OTHER, SELFPAY | PROVIDERS: PCP Student in an Organized Health Care Education/Training Program; Visit Provider Student in an Organized Health Care Education/Training Program | DX: R35.0 Frequency of micturition (principal) | CPT/HCPCS: 87086 ==

== ENCOUNTER 2023-02-13 16:37 | Emergency (ER) | payer OTHER, SELFPAY ==
--- NOTE | 2023-02-13 17:24 | EXP.UTC ---
Discharge Plan Disposition Patient Disposition: Home, Self-Care Condition: Good Prescriptions Prescriptions: New azithromycin [Zithromax] 250 mg tablet 250 mg PO UD DOSE PK Qty: 6 0RF Rx Instructions: Take two (2) tablets today, then one (1) tablet days #2 thru #5 benzonatate [benzonatate] 100 mg capsule 100 mg PO TIDP PRN (Reason: Cough) Qty: 30 0RF methylprednisolone 4 mg Tablets,Dose Pack 4 mg PO DIRECTED Qty: 21 0RF No Action aspirin 81 mg tablet,delayed release (DR/EC) 81 mg PO DAILY levonorgestrel-ethinyl estrad [Aviane] 0.1-20 mg-mcg tablet 1 tab PO DAILY Qty: 28 3RF Referrals Follow up/Referrals: Boby (ED),Devendra Portillo MD [Primary Care Provider] - See instructions Activity Restrictions/Add. Instructions Additional Instructions/Restrictions: Drink plenty of fluids. Take tylenol or ibuprofen for pain or fever. Take the medications as directed. Follow up with your regular doctor. GO TO THE ER FOR ANY WORSENING SYMPTOMS Clinical Impressions Clinical Impression: Sinusitis Instructions Patient Instructions: Sinusitis, DI for Sinusitis Discharge ED Provider: Pedro Nguyen [facility] General Stated complaint: congestion,weakness Time Seen by Provider: 02/13/23 17:24 History of Present Illness Provider Complaint: She states that for the past 3 days she has had worsening sinus congestion, sore throat and cough. She refused a covid-19 test today. Related Data Home Medications Medication Instructions Recorded Confirmed aspirin 81 mg tablet,delayed 81 mg PO DAILY 11/15/22 12/31/22 release Previous Rx's Medication Instructions Recorded levonorgestrel-ethinyl estradiol 1 tab PO DAILY #28 tabs 11/15/22 0.1 mg-20 mcg tablet (Aviane) azithromycin 250 mg tablet 250 mg PO UD DOSE PK #6 tabs 02/13/23 (Zithromax) benzonatate 100 mg capsule 100 mg PO TIDP PRN Cough #30 caps 02/13/23 methylprednisolone 4 mg tablets in 4 mg PO DIRECTED #21 tabs 02/13/23 a dose pack Allergies Allergy/AdvReac Type Severity Reaction Status Date / Time No Known Allergies Allergy Verified 02/13/23 17:42 PFSH PFSH Disclaimer: The information contained in this section may have been updated after the patient was seen, as this information can be updated by other users. Medical History Abdominal pain Anxiety Complete miscarriage History of hemorrhage History of pre-eclampsia Spontaneous 10 weeks Surgical History No history of previous surgery Family History Other Alcoholism Cancer Coronary artery disease Diabetes Heart attack Hypertension Stroke Substance abuse Thyroid disorder Social History Smoking Status: Current every day smoker tobacco type: e-cigarettes alcohol intake: never substance use type: denies use current occupational status: employed Travel in the last 8 weeks: None household members: children housing: apartment ROS Obtained: Yes All systems reviewed & no additional complaints except as documented Constitutional Constitutional: Reports chills and Reports fever(s) Eyes Eyes: Denies eye discharge ENT Ears, Nose, Mouth, and Throat: Reports as per HPI Cardiovascular Cardiovascular: Denies chest pain Respiratory Respiratory: Denies chest congestion and Reports cough Gastrointestinal Gastrointestingal: Reports nausea; Denies abdominal pain, constipation, cramping, diarrhea or vomiting Musculoskeletal Musculoskeletal: Denies arthralgias Integumentary/Breasts Skin/Breast: Denies rash Neurologic Neurologic: Denies paresthesias Physical Exam General General appearance: alert and in no apparent distress Eye Eye exam: Present normal appearance, PERRL and EOMI ENT ENT exam: Pr
[2023-02-13 17:25] VITALS: BP 135/74; PULSE 93; RESP 18; TEMP 36.9; O2SAT 97; BMI 26.6
[2023-02-13 17:40] LABS: UTC Strep Screen (Rapid) Negative (Negative)
[2023-02-13 18:21] VITALS: BP 135/74; PULSE 93; RESP 18; TEMP 36.9; O2SAT 97
== END 2023-02-13 18:21 | disposition home or self-care (01) ==
PROVIDERS: Emergency Provider Nurse Practitioner Family; PCP Emergency Medicine
DX: J01.90 Acute sinusitis, unspecified (principal); R05.9 Cough, unspecified; F17.290 Nicotine dependence, other tobacco product, uncomplicated; F41.9 Anxiety disorder, unspecified
CPT/HCPCS: 87880; 99212; 99214; G0463

== ENCOUNTER → 2023-04-10 23:55 | Outpatient (CLI) | payer OTHER, SELFPAY ==
[2023-04-10 21:46] LABS: Basophils % 0.7 % (0.1-2.0); Eosinophils # 0.2 K/mm3 (0.0-0.4); Eosinophils % 2.5 % (0.1-12.0); Hematocrit 38.4 % (37.0-47.0); Hemoglobin 13.1 g/dL (12.2-16.2); Lymphocytes # 2.4 K/mm3 (0.7-4.5); Lymphocytes % 35.8 % (10-50); Mean Corpuscular Hemoglobin 27.5 pg (27.0-31.2); Mean Corpuscular Volume 80.8 fl (81-99); Mean Platelet Volume 9.9 fl (7.4-10.4); Monocytes # 0.4 K/mm3 (0.1-1.0); Monocytes % 5.7 % (1.7-9.3); Neutrophils # 3.7 K/mm3 (1.8-7.8); Neutrophils % 55.3 % (37.0-80.0); Platelet Count 189 K/mm3 (142-424); Red Blood Count 4.75 M/mm3 (4.20-5.40); Red Cell Distribution Width 15.7 % (11.5-17.5); White Blood Count 6.8 K/mm3 (4.8-10.8)
[2023-04-10 22:13] LABS: Alanine Aminotransferase 28 U/L (12-78); Albumin Level 4.6 g/dl (3.5-5.0); Albumin/Globulin Ratio 1.8 (1.1-1.8); Alkaline Phosphatase 67 U/L (38-126); Anion Gap 13.1 mEq/L (5-15); Aspartate Amino Transferase 34 U/L (14-36); Bilirubin,Total 0.3 mg/dl (0.2-1.3); Blood Urea Nitrogen 13 mg/dl (7-17); Calcium 9.4 mg/dl (8.4-10.2); Carbon Dioxide 27 mmol/L (22.0-30.0); Chloride 102 mmol/L (98-107); Chol/HDL Ratio 2.9 (1-3.5); Cholesterol 147 mg/dl (140-200); Estimated Glomerular Filt Rate 89 ml/min (>60); GFR (African American) 108 ML/MIN (>60); Globulin 2.6 g/dL (1.3-3.2); Glucose 82 mg/dl (74-100); HDL Cholesterol 50 mg/dl (40-60); Potassium 4.1 mmoL/L (3.5-5.1); Sodium 138 mmol/L (136-145); Total Protein,Serum 7.2 g/dl (6.3-8.2); Triglycerides 142 mg/dl (30-150); VLDL Cholesterol 28 mg/dL (0-40)
[2023-04-10 22:35] LABS: 25-OH Vitamin D, Total 36.3 ng/mL (30-100)
[2023-04-10 23:23] LABS: Vitamin B12 409 pg/mL (239-931)
== END ==
PROVIDERS: PCP Physician Assistant; Visit Provider Physician Assistant
DX: R06.02 Shortness of breath (principal); R20.0 Anesthesia of skin; R20.2 Paresthesia of skin
CPT/HCPCS: 80053; 80061; 82306; 82607; 82746; 84443; 85025

== ENCOUNTER → 2023-04-11 09:59 | Outpatient (CLI) | payer OTHER, SELFPAY ==
--- NOTE | 2023-04-11 10:05 | XR_ITS ---
FINAL REPORT CLINICAL HISTORY: shortness of breath, chest pain COMPARISON: 07/11/2022 FINDINGS: PA and lateral views of the chest were obtained. The cardiac and mediastinal silhouettes are within normal limits. The lungs are clear. There is no pleural effusion or pneumothorax. No acute osseous abnormality is identified. IMPRESSION: No radiographic evidence of acute cardiac or pulmonary disease. Reviewed, Interpreted and Dictated by Ade Ruiz MD Transcribed by Bindu Santos Authenticated and [facility]
== END ==
PROVIDERS: PCP Physician Assistant; Visit Provider Physician Assistant
DX: R06.02 Shortness of breath (principal)
CPT/HCPCS: 71046

== ENCOUNTER → 2023-04-17 07:09 | Outpatient (CLI) | payer OTHER, SELFPAY ==
--- NOTE | 2023-04-17 | CA_ITS ---
APPROVED REPORT Exam: Exercise Treadmill Technologist: Phuong Marie, Ht: 5 ft 6 in Wt: 165 lbs BSA: 1.84 m2 HR: 60 bpm BP: 112/82 mmHg Rhythm: NSR Stress Test Details Test: Daniel HR Resting HR: 70 bpm Max Heart Rate (APMHR): 197 bpm Max HR Achieved: 182 bpm Target HR (85% APMHR): 167 bpm % of APMHR: 92 Recovery HR: 72 bpm HR response to stress: Normal HR response to stress BP Resting BP: 108.0/75.0 mmHg Max BP: 190.0/80.0 mmHg Recovery BP: 136.0/75.0 mmHg BP response to stress: Normal blood pressure response to stress. ECG Resting ECG: sinus arrhythmia, early repolarization changes Stress ECG: No significant ST changes Arrhythmia: None Recovery ECG: No significant ST changes Recovery Arrhythmia: PVCs Clinical Exercise duration: 10:30 min Highest Stage Achieved: IV Exercise capacity: 12.8 METs Overall Exercise Capacity for Age: Average Stress ECG Conclusion The patient was able to exercise for a total of 10 minutes, 30 seconds. She achieved a total of 12.8 METS. She has average exercise capacity compared to age and sex matched peers. She has normal HR and BP response to exercise. Max HR: 182 % of PM: 92% Max BP: 190/80 METs: 12.8 Test stopped due to: SOA, Fatigue Symptoms: chest tightness near maximum HR. Arrhythmias/Ectopy: Rare PVC during recovery. ST-T Changes: No significant ST changes Conclusion: Average exercise capacity. Chest tightness with otherwise normal GXT at peak stress. Myoview images reported separately. Test Summary REST . . . . . . . Sitting REST . . . . . . . Standing REST 04:28 0.0 0.0 70 . 108/ 75 . . Stage 1 01:00 10.0 1.7 105 . . . . Stage 1 02:00 10.0 1.7 114 . . . . Stage 1 03:00 10.0 1.7 116 . 152/ 70 . . Stage 2 01:00 12.0 2.5 126 . . . . Stage 2 02:00 12.0 2.5 121 . . . . Stage 2 03:00 12.0 2.5 130 . 164/ 80 . . Stage 3 01:00 14.0 3.4 142 . . . . Stage 3 02:00 14.0 3.4 150 . . . . Stage 3 03:00 14.0 3.4 152 . 190/ 80 . . Stage 4 . . . . . . . Myoview Injected Stage 4 01:00 16.0 4.2 176 . . . . Stage 4 01:30 16.0 4.2 182 . . . Stop exercise at 10:30 RECOVERY 01:00 0.0 0.0 141 . . . . RECOVERY 02:00 0.0 0.0 103 . . . . RECOVERY 03:00 0.0 0.0 92 . 169/ 92 . . RECOVERY 04:00 0.0 0.0 76 . 158/ 95 . . RECOVERY 05:00 0.0 0.0 81 . 158/ 95 . . RECOVERY 05:29 0.0 0.0 83 . 136/ 75 . . Electronically signed by : Hailee Lew MD 04/27/2023 21:35:38
--- NOTE | 2023-04-17 07:10 | NM_ITS ---
APPROVED REPORT Exam: Nuclear Stress Test Indication: chest pain..soa..fatigue Patient Location: Outpatient Stress Tech: Phuong Zavala [place] Tech:CADE Colbert RT(R)(N) Ht: 5 ft 6 in Wt: 170 lbs Bra Size: 32b HR: 70 bpm BP: 108/75 mmHg BSA: 1.87 m2 TID: 1.11 BMI: 27.4 History: chest pain..fatigue Procedure: Patient exercised on Daniel protocol 10:30 minutes and sec, resting heart rate 70 bpm, resting blood pressure 108/75 mmHg, with exercise maximum heart rate achived was 182 bpm which is 92 % of the maximum predicted heart rate and blood pressure was 190/80 mmHg. Test was stopped due to faitgue. Patient denied any complaint of chest pain. Patient has Average exercise capacity, achieved 12.8 METs of workload on treadmill, the blood pressure response to exercise was Normal. Cardiac Stress and Resting SPECT Images: Cardiac Stress and Resting SPECT images were obtained using technetium 99m Myoview 32.9 mCi stress and 10.98 mCi at rest. This is a technically difficult study due to significant soft tissue overlap with the cardiac borders. This may affect the diagnostic interpretation of the study findings. Resting and stress imaging in supine position demonstrate a large sized, mild, partially reversible perfusion defect in the anterior LV wall. This is no longer visualized with prone stress imaging. Gated imaging demonstrates mild reduction in global and regional LV systolic function. LVEF is calculated at 47%. Conclusion: Technically difficult study due to significant soft tissue overlap with the cardiac borders. This may affect the diagnostic interpretation of the study findings. Large sized, mild, partially reversible perfusion defect in the anterior LV wall. This is no longer visualized with prone stress imaging. Findings may be suggestive of soft tissue attenuation, but true perfusion defect cannot be entirely ruled out due to technically difficult study. Gated imaging demonstrates mild reduction in global and regional LV systolic function. LVEF is calculated at 47%. In the setting of reduced LVEF in this study and technically difficult study, this is considered a nondiagnostic study. If clinical concern for ischemia is present, evaluation with an alternative imaging modality (e.g. CCTA) is recommended, as well as evaluation for LVEF with TTE. Electronically signed by : Hailee Lew MD 04/27/2023 21:41:43
--- NOTE | 2023-04-17 07:14 | XR_ITS ---
FINAL REPORT TECHNIQUE: 5 views CLINICAL HISTORY: neck pain COMPARISON: None FINDINGS: There is no fracture present. There is no malalignment. There are no significant degenerative changes. IMPRESSION: No acute process. Reviewed, Interpreted and Dictated by Aneudy Jones MD Transcribed by Lisseth Gordillo Authenticated and [facility]
== END ==
LOC: RAD 07:10
PROVIDERS: PCP Physician Assistant; Visit Provider Physician Assistant
DX: R06.02 Shortness of breath (principal); M54.2 Cervicalgia; Z80.8 Family history of malignant neoplasm of other organs or systems
CPT/HCPCS: 72050; 78452; 93017; 93018; A9502

== ENCOUNTER → 2023-05-05 15:15 | Outpatient (CLI) | payer OTHER, SELFPAY ==
--- NOTE | 2023-05-05 15:15 | CA_ITS ---
APPROVED REPORT EXAM: Comprehensive 2D, Doppler, and color-flow Echocardiogram Quality Supervisor: Lilly Garrett CRT Ht: 5 ft 6 in Wt: 169lbs BSA: 1.86 BP: 83/55 mmHg Indications: Shortness of Breath, Peripheral Edema, EF 47% on nuc gxt 2D Dimensions Aortic Root 1.97 cm LA Volume 26.70 mL Left Atrium 2.15 cm LA Volume Index 14.40 mL/m2 (M/F) 16-34 EF AP4 51.00 % GL Strain -20.3 % M-Mode Dimensions RVDd 2.04 cm (0.9-2.6) LVDd 4.22 cm (3.5-5.7) Ao Diam 3.01 cm (2.0-3.7) LVDs 3.03 cm (3.5-5.7) IVSd 1.28 cm (0.6-1.1) PWd 0.58 cm (0.6-1.1) EF (Teich) 54.80% FS 28.20% EDV (Teich) 79.50 mL TAPSE 2.82 (<1.7) ESV (Teich) 35.90 mL LV Diastology E Decel Time 208 (160-240 msec) E/A Ratio 1.01 MED E' 11.8 (>= 7 cm/sec) MED A' 4.50 cm/s E'/MED E' Ratio 8.14 (<= 14) LAT E' 16.9 (>= 10 cm/sec) LAT A' 5.20 cm/s E/LAT E' Ratio 5.69 (<= 14) Aortic Valve AoV Peak Storm. 129.0 (50-130 cm/s) AO Peak GR. 6.70 mmHg Mitral Valve MV E Max Storm. 96.0 (40-130 cm/s) MV A Velocity 95.0 (40-130 cm/s) E/A Ratio 1.01 MV Decel. Time 208 (160-240 ms) Tricuspid Valve TR P. Velocity 387.00 cm/s RAP Estimate 10.00 mmHg RVSP 69.80 mmHg Left Ventricle The left ventricle is normal size. The left ventricular systolic function is normal. The left ventricular ejection fraction is within the normal range. There is normal left ventricular wall thickness. There is normal LV segmental wall motion. The left ventricular diastolic function is normal. LVEF is 55%. Right Ventricle The right ventricle is normal size. The right ventricular systolic function is normal. Atria The left atrium size is normal. The right atrium size is normal. There is no Doppler evidence of interatrial shunt. Aortic Valve The aortic valve opens well. There is no aortic valvular stenosis. No aortic regurgitation is present. Mitral Valve The mitral valve is normal in structure. No evidence of mitral valve stenosis. Trace mitral regurgitation. Tricuspid Valve The tricuspid valve leaflets are thin and pliable. Mild tricuspid regurgitation. RVSP is normal. Pulmonic Valve The pulmonary valve is normal in structure. Trace pulmonic regurgitation. Great Vessels The aortic root is normal in size. The ascending aorta is normal in size. IVC is normal in size and collapses >50% with inspiration. Pericardium There is no pericardial effusion. Other Information Study Quality: Adequate Conclusion Normal biventricular systolic function (LVEF 55%). Mild TR. Electronically signed by : Hailee Lew MD 05/09/2023 22:30:45
== END ==
LOC: RT 15:15
PROVIDERS: PCP Physician Assistant; Visit Provider Nurse Practitioner
DX: R06.02 Shortness of breath (principal); I50.20 Unspecified systolic (congestive) heart failure
CPT/HCPCS: 93306

== ENCOUNTER 2023-05-08 11:42 | Outpatient (CLI) | payer OTHER, SELFPAY ==
--- NOTE | 2023-05-08 11:43 | CT_ITS ---
APPROVED REPORT Manager Knowledge: CLINICAL INDICATION Chest Pain TECHNIQUE Image Acquisition: A 128 slice MDCT scanner ([employer] View) was used for data acquisition. A noncontrast coronary calcium scan was performed. A CT attenuation threshold of 130 Hounsfield units (HU) was used for the detection of calcium in contiguous voxels of 1 sq mm in area to be counted as individual lesions. Bolus tracking in the ascending aorta with a threshold of 180 HU was performed. Immediately afterwards, ECG synchronized cardiac CT was then performed from the cardiac base to apex using retrospective gating with ECG tube current modulation. A total of 85 mL of Isovue 370 mg/mL contrast medium was administered at 5 mL/sec followed by a saline flush using a biphasic injection protocol. A tube voltage of 120 KVp was used. The patient received the following medications prior to the cardiac CT. 25 mg of oral metoprolol 0.8 mg of sublingual nitroglycerin The average heart rate at the time of acquisition was 60 bpm and regular. Image Reconstruction Transaxial images were reconstructed at 0.67 mm slide thickness. Data was reviewed interactively on an advanced workstation capable of 2 and 3-dimensional displays in all conventional reconstruction formats, including multiplanar reformations, maximum intensity projections, curved multiplanar reformations, and volume rendered reconstructions. When applicable, selected routine images describing the relevant coronary anatomy and pathology were saved and sent to PACS. Complications None Technical Quality Overall image quality was good. Coronary artery opacification was adequate. Total DLP (Dose-Length Product) is 1638.1 mGy-cm. The reported value represents the total of one or more individual components during the CT acquisition of this date and at this time, and as such, the same value may appear in more than one CT report depending on the interpreting/reporting physicians. COMPARISON None FINDINGS CT Coronary Calcium Scoring LMA (Left Main Artery) = 0 LAD (Left Anterior Descending) = 0 LCX (Left Coronary Circumflex) = 0 RCA (Right Coronary Artery) = 0 Total Calcium Score = 0 using the AJ-130 method. The interpretation of the calcium heart score is based on the following continuum*: 0 = no calcified plaque detected (risk of coronary artery disease is very low ??? less than 5%) 1-10 = calcium detected in extremely minimal levels (risk of coronary diseases is still low ??? less than 10%) 11-100 = mild levels of plaque detected with certainty (mild or minimal narrowing of heart arteries is likely) 101-400 = definite,at least moderate levels of plaque detected (relatively high risk of a heart attack within 3-5 years) >401-999 = extensive levels of plaque detected (high risk of heart attack, high levels of vascular disease are present, high likelihood of at least one significant coronary narrowing) *The calcium heart score quantifies the burden of coronary calcification/plaque in the coronary arteries. The calcium heart score is not able to evaluate the presence or burden of non-calcified (i.e. soft) plaque. There is no identifiable calcification in the aortic valve, mitral annulus or mitral valve, pericardium, or myocardium. Coronary CT Angiography Coronaries have normal origin and proximal course. The coronary arterial system is right dominant. Note: Stenosis is reported as maximum percentage diameter stenosis. Quantitative Stenosis Grading: Left Main (LM): The left main originates normally from the left sinus of Valsalva. The LM triifurcates into the left anterior descending artery and left circumflex artery. The LM is patent with no evidence of atherosclerosis. Left Anterior Descending (LAD) an
[2023-05-08 12:04] VITALS: BMI 27.2
[2023-05-08 12:07] VITALS: BP 119/52; PULSE 61; RESP 18; TEMP 36.3; O2SAT 99
[2023-05-08 12:18] LABS: Urine Pregnancy, HCG Qual. Negative (Negative)
[2023-05-08 12:47] VITALS: BP 130/77; PULSE 55; RESP 18; O2SAT 100
[2023-05-08 12:52] VITALS: BP 115/63; PULSE 55; RESP 18; O2SAT 100
[2023-05-08 13:03] VITALS: BP 124/51; PULSE 67; RESP 16; TEMP 36.6; O2SAT 100
== END 2023-05-08 13:20 | disposition home or self-care (01) ==
PROVIDERS: PCP Physician Assistant; Visit Provider Nurse Practitioner
DX: I50.20 Unspecified systolic (congestive) heart failure (principal)
CPT/HCPCS: 75571; 75574; 81025; Q9967

== ENCOUNTER 2023-07-09 08:00 | Emergency (ER) | payer OTHER, SELFPAY ==
[2023-07-09 08:01] VITALS: BP 122/72; PULSE 106; RESP 16; TEMP 36.8; O2SAT 95; BMI 27.4
--- NOTE | 2023-07-09 08:20 | ED_ITS ---
Discharge Plan Disposition Patient Disposition: Home, Self-Care Condition: Good Prescriptions Prescriptions: New oseltamivir [Tamiflu] 75 mg capsule 75 mg PO Q12H 5 Days Qty: 10 0RF ondansetron 4 mg tablet,disintegrating 4 mg PO Q8H PRN (Reason: nausea and vomiting) Qty: 10 0RF No Action aspirin [Adult Low Dose Aspirin] 81 mg tablet,delayed release (DR/EC) 81 mg PO DAILY Qty: 30 5RF ranolazine 500 mg tablet extended release 12 hr 500 mg PO BID Qty: 60 3RF albuterol sulfate 90 mcg/actuation HFA aerosol inhaler 1 inh inhalation Q6H Qty: 6.7 3RF Referrals Follow up/Referrals: Celina Nunez PA [Primary Care Provider] - See instructions Activity Restrictions/Add. Instructions Additional Instructions/Restrictions: * Start Tamiflu today if you are going to take it. Discussed risk and possible benefits. * Lots of rest * Increase Fluids water, Gatorade, powerade, pedialyte,if /toddler/child * Alternate Tylenol and / or ibuprofen as discussed for fever, aches, ch ills Follow up IMMEDIATELY with your family doctor for new or worsening Symptoms OR no noticeable improvement over the next 48-72 hours, 911 for difficulty or breathing * You or your child area contagious until no fever, aches, chills for 24 hours with medication for symptoms * Help Prevent the spread of influenza: * ?Wash your hands often. Use soap and water. Wash your hands after you use the bathroom, change a child's diapers, or sneeze. Wash your hands before you prepare or eat food. Use gel hand cleanser that has 60% alcohol, when soap and water are not available. Do not touch your eyes, nose, or mouth unless you have washed your hands first. * Cover your mouth when you sneeze or cough. Cough into a tissue or the bend of your arm. If you use a tissue, throw it away immediately and wash your hands. * Clean shared items with a germ-killing carbon cleaner. Clean table surfaces, doorknobs, and light switches. Do not share towels, silverware, and dishes with people who are sick. Wash bed sheets, towels, silverware, and dishes with soap and water. * Wear a mask over your mouth and nose if you are sick. The face mask may help protect others from becoming infected with the flu. Wear the mask when in common areas of your home or if you seek care with a healthcare provider. * Stay away from others if you are sick. Stay at home until 24 hours after your fever and symptoms are gone. Clinical Impressions Clinical Impression: Influenza Stand Alone Forms Stand Alone Forms: Work/School Release Instructions Patient Instructions: DI for Influenza -- Adult, Influenza Discharge ED Provider: Domi Grajeda [facility] [place] General Stated complaint: vomiting, chills, body aches Mode of Arrival: Ambulatory Source of Information: Patient Limitations: No Limitations Time Seen by Provider: 07/09/23 08:21 Description of Symptoms (Recalled from Triage Doc. by RN): Patient states she woke up this morning with chills, body aches, stomach pain, diarrhea and vomiting. HEENT Symptoms (Recalled from RN notes): No Resp Symptoms (Recalled from RN notes): No Skin Symptoms (Recalled from RN notes): No MS Symptoms (Recalled from RN notes): Yes Functional Status (Recalled from RN notes): wnl History of Present Illness Provider Complaint: Patient states that she woke up this morning not feeling well with body aches, chills, nausea, vomiting, diarrhea and cramping States that her kids has been sick also States that she come in to get checked Related Data Previous Rx's Medication Instructions Recorded albuterol sulfate 90 mcg/actuation 1 inh inhalation Q6H #6.7 grams 05/12/23 aerosol inhaler aspirin 81 mg tablet,delayed 81 mg PO DAILY #30 tabs 05/12/23 release (Adult Low Dose Aspirin) ranolazine 500 mg tablet,extended 500 mg PO BID #60 tabs 05/12/23 release,12 hr ondansetron 4 mg disintegrating 4 mg PO Q8H PRN nausea and 07/09/23 tablet vomiting #10 tabs oseltamivir 75 mg capsule (Tamiflu) 75 mg PO Q12H 5 days #10 caps 07/09/23 Allergies Allergy/AdvReac Type Severity Reaction Status Date / Time No Known Allergies Allergy Verified 05/12/23 15:06 Worker's Comp Is this a Worker's Comp case?: No [facility] Disclaimer: The information contained in this section may have been updated after the patient was seen, as this information can be updated by other users. Medical History (Updated 07/09/23 @ 09:01 by Domi Grajeda APRN) Abdominal pain Anxiety Chest pain Complete miscarriage History of hemorrhage History of pre-eclampsia Spontaneous Surgical History No history of previous surgery Family History Other Alcoholism Cancer Coronary artery disease Diabetes Heart attack Hypertension Stroke Substance abuse Thyroid disorder Social History Smoking Status: Current every day smoker tobacco type: e-cigarettes alcohol intake: never substance use type: denies use current occupational status: employed Travel in the last 8 weeks: None household members: children housing: apartment ROS Obtained: Yes All systems reviewed & no additional complaints except as documented and Yes Systems reviewed as appropriate & no additional complaints except as documented Constitutional Constitutional: Reports system reviewed and no additional complaints, except as documented, Reports as per HPI, Reports body ache and Reports chills ENT Ears, Nose, Mouth, and Throat: Reports system reviewed and no additional complaints, except as documented and Reports as per HPI Cardiovascular Cardiovascular: Reports system reviewed and no additional complaints, except as documented and Reports as per HPI Respiratory Respiratory: Reports system reviewed and no additional complaints, except as documented and Reports as per HPI Gastrointestinal Gastrointestingal: Reports system reviewed and no additional complaints, except as documented, as per HPI, cramping, diarrhea, nausea and vomiting Physical Exam General General appearance: alert and in no apparent distress ENT ENT exam: Present mucous membranes moist Expanded ENT Exam Nose exam: Absent sinus tenderness Throat exam: Present normal inspection Respiratory Respiratory exam: Present normal lung sounds bilaterally; Absent respiratory distress or wheezes Cardiovascular Cardiovascular exam: Present regular rate, normal rhythm and tachycardia Abdominal Exam Abdominal exam: Present soft and normal bowel sounds; Absent distention or tenderness Neurological Exam Neurological exam: Present alert, oriented X3 and normal gait Medical Decision Making Dionicio Inquiry Pt receiving controlled substance: No Dionicio was queried for this patient: No Vital Signs: 07/09/23 08:01 Temperature 98.2 F Temperature Source Oral Pulse Rate [Radial] 106 H Respiratory Rate 16 Blood Pressure [Left Arm] 122/72 Blood Pressure Mean [Left Arm] 88 Blood Pressure Source [Left Arm] Automatic Cuff Blood Pressure Position [Left Arm] Sitting 02 Sat by Pulse Oximetry 95 Oxygen Delivery Method Room Air Lab Data Lab results reviewed: Yes I reviewed the patient's lab results.
[2023-07-09 08:53] LABS: UTC Influenza A Antigen Negative (Negative)
[2023-07-09 08:54] LABS: UTC Influenza B Antigen Positive (Negative)
[2023-07-09 09:10] VITALS: BP 122/72; PULSE 106; RESP 16; TEMP 36.8; O2SAT 95
== END 2023-07-09 09:11 | disposition home or self-care (01) ==
PROVIDERS: Emergency Provider Nurse Practitioner; PCP Physician Assistant
DX: J10.2 Influenza due to other identified influenza virus with gastrointestinal manifestations (principal); R11.2 Nausea with vomiting, unspecified; R19.7 Diarrhea, unspecified; R68.83 Chills (without fever); M79.18 Myalgia, other site; F17.290 Nicotine dependence, other tobacco product, uncomplicated
CPT/HCPCS: 87804; 99212; 99214; G0463

== ENCOUNTER 2023-10-05 19:24 | Emergency (ER) | payer SELFPAY ==
[2023-10-05 19:37] VITALS: BP 161/81; PULSE 113; O2SAT 98
[2023-10-05 19:40] VITALS: BP 161/80; PULSE 120; RESP 19; TEMP 36.8; O2SAT 97; BMI 28.2
--- NOTE | 2023-10-05 20:00 | PC.NURSE ---
multiple children in room, patient not wearing BP cuff or pulse ox
--- NOTE | 2023-10-05 20:13 | [facility].EDGENADL ---
Discharge Plan Disposition Patient Disposition: Home, Self-Care Condition: Good Chief Complaint: Vaginal Bleeding Prescriptions Prescriptions: No Action aspirin [Adult Low Dose Aspirin] 81 mg tablet,delayed release (DR/EC) 81 mg PO DAILY Qty: 30 5RF ranolazine 500 mg tablet extended release 12 hr 500 mg PO BID Qty: 60 3RF albuterol sulfate 90 mcg/actuation HFA aerosol inhaler 1 inh inhalation Q6H Qty: 6.7 3RF oseltamivir [Tamiflu] 75 mg capsule 75 mg PO Q12H 5 Days Qty: 10 0RF ondansetron 4 mg tablet,disintegrating 4 mg PO Q8H PRN (Reason: nausea and vomiting) Qty: 10 0RF Referrals Follow up/Referrals: Celina Nunez PA [Primary Care Provider] - See instructions Kandy Price DO [Staff Physician] - See instructions Activity Restrictions/Add. Instructions Additional Instructions/Restrictions: Follow-up closely with OB gynecology for continued evaluation and management as they will likely need to repeat your hCG levels which were in the thousands today. Return for any new or worsening symptoms including but not limited to worsening bleeding, pain, lightheadedness or dizziness or any other concerns arise. Clinical Impressions Clinical Impression: Incomplete miscarriage Stand Alone Forms Stand Alone Forms: Work/School Release Instructions Patient Instructions: DI for Vaginal Bleeding Discharge ED Provider: Kandy Pretty General Adult HPI General Chief complaint: Vaginal Bleeding Stated complaint: bleeding really bad and passing clots Time Seen by Provider: 10/05/23 19:40 Mode of Arrival: Family Vehicle Source of Information: Patient Limitations: No Limitations Description of Symptoms (Recalled from ER Triage Doc. by RN): 23 yo presents for vaginal bleeding that began earlier this date. reports she feels like she is hemorrhaging and brought pictures of clots she has passed. no syncope present. patient states she has wore pads today for clothing protection and only utilized 2. History of Present Illness HPI narrative: Patient is a 23-year-old with past medical history preeclampsia presenting with vaginal bleeding. Patient states that earlier this morning she began to have some vaginal bleeding and has been passing some clots. She states that she wore pads and was passing clots and went through 1 pad in 25 minutes though she has only used 2 pads so far. She is not sure if she is but says there is a possibility. She is 6 days late for her cycle. Does note some mild lightheadedness but has not passed out. Denies any bleeding or clotting disorders. Related Data Previous Rx's Medication Instructions Recorded albuterol sulfate 90 mcg/actuation 1 inh inhalation Q6H #6.7 grams 05/12/23 aerosol inhaler aspirin 81 mg tablet,delayed 81 mg PO DAILY #30 tabs 05/12/23 release (Adult Low Dose Aspirin) ranolazine 500 mg tablet,extended 500 mg PO BID #60 tabs 05/12/23 release,12 hr ondansetron 4 mg disintegrating 4 mg PO Q8H PRN nausea and 07/09/23 tablet vomiting #10 tabs oseltamivir 75 mg capsule (Tamiflu) 75 mg PO Q12H 5 days #10 caps 07/09/23 Allergies Allergy/AdvReac Type Severity Reaction Status Date / Time No Known Allergies Allergy Verified 05/12/23 15:06 [facility] Disclaimer: The information contained in this section may have been updated after the patient was seen, as this information can be updated by other users. Medical History (Updated 10/05/23 @ 23:39 by Kandy Pretty MD) Chest pain Spontaneous History of hemorrhage History of pre-eclampsia Anxiety Complete miscarriage Abdominal pain Surgical History No history of previous surgery Family History Other Alcoholism Cancer Coronary artery disease Diabetes Heart attack Hypertension Stroke Substance abuse Thyroid disorder Social History Smoking Status: Unknown if ever smoked alcohol intake: never substance use type: denies use current occupational status: employed Travel in the last 8 weeks: None household members: children housing: apartment ROS Obtained: Yes Systems reviewed as appropriate & no additional complaints except as documented Physical Exam General General appearance: alert and in no apparent distress Head Head exam: atraumatic and normocephalic Respiratory Respiratory exam: Present normal lung sounds bilaterally; Absent respiratory distress Cardiovascular Cardiovascular exam: Present regular rate and normal rhythm Abdominal Exam Abdominal exam: Present soft; Absent distention, tenderness or guarding Extremities Exam Extremities exam: Present normal inspection Neurological Exam Neurological exam: Present alert and oriented X3 Skin Skin exam: Present warm and dry Medical Decision Making Medical Records Medical records reviewed: Yes I reviewed the patient's medical records. Dionicio Inquiry Pt receiving controlled substance: No Vital Signs: 10/05/23 19:37 10/05/23 19:40 10/05/23 22:26 Temperature 98.2 F Temperature Source Oral Pulse Rate 113 H 75 Pulse Rate [Right Brachial] 120 H Respiratory Rate 19 Blood Pressure 161/81 H 151/94 H Blood Pressure [Right Arm] 161/80 H Blood Pressure Mean Blood Pressure Mean [Right Arm] 107 Blood Pressure Source [Right Arm] Automatic Cuff Blood Pressure Position [Right Arm] Sitting 02 Sat by Pulse Oximetry 98 97 97 Oxygen Delivery Method Room Air 10/05/23 22:30 10/05/23 23:00 Temperature Temperature Source Pulse Rate 85 Pulse Rate [Right Brachial] Respiratory Rate 15 16 Blood Pressure 136/82 139/111 H Blood Pressure [Right Arm] Blood Pressure Mean 106 117 Blood Pressure Mean [Right Arm] Blood Pressure Source [Right Arm] Blood Pressure Position [Right Arm] 02 Sat by Pulse Oximetry 98 99 Oxygen Delivery Method Room Air Room Air Lab Data Lab results reviewed: Yes I reviewed the patient's lab results. Lab Results 10/05/23 20:14: WBC 11.6 H, RBC 4.63, Hgb 12.7, Hct 37.6, MCV 81.1, MCH 27.5, MCHC 33.8, RDW 15.7, Plt Count 226, MPV 9.1, Neut % (Auto) 70.1, Lymph % (Auto) 23.3, Cass % (Auto) 4.6, Eos % (Auto) 1.4, Baso % (Auto) 0.7, Neut # (Auto) 8.2 H, Lymph # (Auto) 2.7, Cass # (Auto) 0.5, Eos # (Auto) 0.2, Baso # (Auto) 0.1, Sodium 136, Potassium 3.7, Chloride 107, Carbon Dioxide 23, Anion Gap 9.7, BUN 10, Creatinine 0.60, Estimated Creat Clear 183, Estimated GFR 124, Est GFR ( Amer) 150, Glucose 107 H, Calcium 9.0, Total Bilirubin 0.4, AST 34, ALT 31, Alkaline Phosphatase 68, Total Protein 7.0, Albumin 4.2, Globulin 2.8, Albumin/Globulin Ratio 1.5, HCG, Quant 1061 H 10/05/23 20:45: Blood Type B Positive 10/05/23 20:14 10/05/23 20:14 Orders (Tests/Meds): ORDERS Category Date Time Status ABO/RH Type Stat BBK 10/05/23 20:45 Completed US transvaginal Stat Exams 10/05/23 20:54 Completed CBC w/Auto Diff [Complete Blood Count Auto Diff] Stat Lab 10/05/23 20:14 Completed CMP [Comprehensive Metabolic Panel] Stat Lab 10/05/23 20:14 Completed HCG,Quantitative Stat Lab 10/05/23 20:14 Completed Medical Decision Narrative: Patient is a 23-year-old female presenting with 1 day history of vaginal bleeding with passage of some clots. She states there is a possibility that she is but if she is she did not know, last menstrual period was 1 month ago and she is 6 days late for her next cycle. Did have bleeding on this with her prior . Exam is overall unremarkable and abdominal exam benign, she is hemodynamically stable and actually hypertensive though slightly tachycardic. Will obtain labs for further evaluation. Did offer patient pain or nausea medications which she declined at this time. CBC nonactionable with hemoglobin stable at 13, CMP nonactionable, hCG is elevated to 1000 consistent with likely and vaginal bleeding could be patient account representative of miscarriage though she was complaining of lower abdominal pain and cramping worse earlier in the day and as she has not had any care concern for possible ectopic and transvaginal ultrasound ordered. Patient made aware of this and agreeable with plan, she remains hemodynamically stable at this time. Transvaginal ultrasound did not read for any intrauterine and while an ectopic could not technically be excluded I did speak with directly with the radiologist regarding his ultrasound read and there are heterogenous material in the uterus to suggest products of conception that are being expulsed given patient's bleeding and there is no free fluid to suggest an ectopic as well as no obvious mass on the ovary. Patient remained stable and I did discuss these findings with her, recommended close follow-up with [employer] for continued management, given referral and given return precautions. Patient agreeable with plan and discharged in stable condition. Critical Care Critical Care Time Critical Care Time: No
[2023-10-05 20:24] LABS: Basophils # 0.1 K/mm3 (0-0.2); Basophils % 0.7 % (0.1-2.0); Eosinophils # 0.2 K/mm3 (0.0-0.4); Eosinophils % 1.4 % (0.1-12.0); Hematocrit 37.6 % (37.0-47.0); Hemoglobin 12.7 g/dL (12.2-16.2); Lymphocytes # 2.7 K/mm3 (0.7-4.5); Lymphocytes % 23.3 % (10-50); Mean Corpuscular HGB Conc 33.8 g/dL (31.8-35.4); Mean Corpuscular Hemoglobin 27.5 pg (27.0-31.2); Mean Corpuscular Volume 81.1 fl (81-99); Mean Platelet Volume 9.1 fl (7.4-10.4); Monocytes # 0.5 K/mm3 (0.1-1.0); Monocytes % 4.6 % (1.7-9.3); Neutrophils # 8.2 K/mm3 (1.8-7.8); Neutrophils % 70.1 % (37.0-80.0); Platelet Count 226 K/mm3 (142-424); Red Blood Count 4.63 M/mm3 (4.20-5.40); Red Cell Distribution Width 15.7 % (11.5-17.5); White Blood Count 11.6 K/mm3 (4.8-10.8)
[2023-10-05 20:28] LABS: Chloride 107 mmol/L (98-107)
[2023-10-05 20:29] LABS: Potassium 3.7 mmoL/L (3.5-5.1); Sodium 136 mmol/L (136-145)
--- NOTE | 2023-10-05 20:30 | PC.NURSE ---
multiple children in room, patient not wearing BP cuff or pulse ox, RN aware
[2023-10-05 20:31] LABS: Alanine Aminotransferase 31 U/L (12-78); Albumin Level 4.2 g/dl (3.5-5.0); Albumin/Globulin Ratio 1.5 (1.1-1.8); Alkaline Phosphatase 68 U/L (38-126); Aspartate Amino Transferase 34 U/L (14-36); Bilirubin,Total 0.4 mg/dl (0.2-1.3); Blood Urea Nitrogen 10 mg/dl (7-17); Creatinine Clearance Estimated 183 mL/min (50-200); Estimated Glomerular Filt Rate 124 ml/min (>60); GFR (African American) 150 ML/MIN (>60); Globulin 2.8 g/dL (1.3-3.2)
[2023-10-05 20:32] LABS: Anion Gap 9.7 mEq/L (5-15); Carbon Dioxide 23 mmol/L (22.0-30.0); Glucose 107 mg/dl (74-100)
[2023-10-05 20:49] LABS: HCG,Quantitative 1061 mIU/ml (0-5.42)
--- NOTE | 2023-10-05 20:54 | US_ITS ---
PROCEDURE INFORMATION: Exam: US , Transvaginal Exam date and time: 10/05/2023 9:30 PM Age: 23 years old Clinical indication: Other: Heavy bleeding; Additional info: Vag bleeding, abdpain, did not know preg, hcg 1000 TECHNIQUE: Imaging protocol: Real-time transvaginal obstetrical ultrasound of the maternal pelvis and a first trimester with image documentation. Transvaginal imaging was used for better evaluation of the fetus, adnexa, and/or cervix. Real-time duplex ultrasound scan of the arterial flow of the ovaries with B-mode, color Doppler flow and spectral waveform analysis. COMPARISON: US OB TRANSVAGINAL 12/18/2021 5:15 PM FINDINGS: GESTATION: Gestation: No intrauterine gestational sac. heart rate: N/A. MATERNAL: Uterus: Endometrium: 1.0 cm in thickness, heterogeneous with internal vascularity. Cervix: Closed cervix. Right ovary: No mass. Normal flow. No adnexal mass. Left ovary: Probable 1.5 x 1.7 x 1.3 cm corpus luteal cyst. Normal flow. No adnexal mass. Intraperitoneal space: No significant free fluid. IMPRESSION: 1. No intrauterine gestation. DDX: Early IUP, missed , ectopic . 2. Heterogeneous, hypervascular endometrium. Retained products of conception not excluded.
--- NOTE | 2023-10-05 20:59 | PC.NURSE ---
crystal growing technician called in for transvaginal scan
--- NOTE | 2023-10-05 21:38 | PC.NURSE ---
transported to US via radiology receptionist and wheelchair
--- NOTE | 2023-10-05 21:56 | PC.NURSE ---
pt returned from ultrasound and manager radio gave report to MIKAYLA HUGO
[2023-10-05 22:26] VITALS: BP 151/94; PULSE 75; O2SAT 97
[2023-10-05 22:30] VITALS: BP 136/82; PULSE 85; RESP 15; O2SAT 98
[2023-10-05 23:00] VITALS: BP 139/111; RESP 16; O2SAT 99
[2023-10-05 23:45] VITALS: BP 132/78; PULSE 70; RESP 20; TEMP 36.9; O2SAT 98
== END 2023-10-05 23:46 | disposition home or self-care (01) ==
PROVIDERS: Emergency Provider Emergency Medicine; PCP Physician Assistant
DX: O03.4 Incomplete spontaneous abortion without complication (principal); R42 Dizziness and giddiness
CPT/HCPCS: 36415; 76830; 80053; 84702; 85025; 86900; 86901; 99284

== ENCOUNTER 2025-02-28 13:09 | Emergency (ER) | payer OTHER, SELFPAY ==
[2025-02-28 13:39] VITALS: BP 141/88; PULSE 87; RESP 18; TEMP 36.8; O2SAT 98; BMI 28.2
--- NOTE | 2025-02-28 13:44 | ECG_ITS ---
APPROVED REPORT Exam: Resting ECG HR:87 bpm ECG Measurements Heart Rate 87 AXES MS 146 P 32 QRSd 89 QRS 57 QT 351 T 10 QTc 395 Conclusion SINUS RHYTHM POSSIBLE RIGHT VENTRICULAR CONDUCTION DELAY [RSR (QR) IN V1/V2] NONSPECIFIC T-WAVE ABNORMALITY BORDERLINE ECG UNCONFIRMED REPORT Electronically signed by : LORA THOMPSON, 02/28/2025 23:01:05
--- NOTE | 2025-02-28 13:49 | XR_ITS ---
FINAL REPORT CLINICAL HISTORY: short of breath COMPARISON: 07/10/2022 FINDINGS: The heart size is normal. The mediastinum is normal. There is no focal infiltrate or edema. There are no pleural effusions. There is no pneumothorax. There is thoracic scoliosis measuring 30 degrees convex to the right. IMPRESSION: No acute cardiopulmonary process Reviewed, Interpreted and Dictated by Aneudy Jones MD Transcribed by Shanthi Pal Authenticated and . [facility]
--- OUTSIDE RECORDS SUMMARY | 2025-02-28 13:49 | XMS_ITS | Encounter Summary ---
Author Organization Healthcare Address [address] [place] [address] Care Team Providers Care Physiatrist Name Role Phone Celina Nunez Primary Care Provider [phone] Encounter Details Date Type Department Care Team (Late st Contact Info) Description 06/27/2021 Outside Procedure External Location [address] [place] [id number] Martín Larry MD [address] [place] [address] Social History Tobacco Use Types Packs/Day Years Used Date Smoking Tobacco: Every Day Smokeless Tobacco: Never Comments:Smokes 1 pack of ci garettes per day Alcohol Use Standard Drinks/Week Comments Yes 1 (1 standard drink = 0.6 oz pur e alcohol) Comments Unknown Sex and Gender Information Value Date Recorded Sex Assigned at Not on file Legal Sex Female 7:20 PM EDT Gender Identity Not on file Sexual Orientation Not on file COVID-19 Exposure Response Date Recorded In the last month, have you been in contact with someone who was confirmed or suspected to have Coronavirus / COVID-19? No / Unsure 06/12/2021 1:28 PM EST documented as of this encounter Plan of Treatment Not on file documented as of this encounter Procedures Procedure Name Priority Date/Time Associated Diagnosis Comments US BREAST LIMITED RIGHT 06/27/2021 12:51 PM EST documented in this encounter Results * US Breast Limited Right (06/27/2021 12:51 PM EST) Anatomical Region Laterality Modality Breast Right Ultrasound 06/27/2021 12:5 1 PM EST Narrative 06/27/2021 2:41 [place] [address] Name: MALA CARRANZA Exam Date: 06/27/2021 : 2000 Age 21 Gender: F Physician: MARTÍN LARRY Facility: [facility] Facility HSV: Outpatient Exam: US BREAST LTD RT RIGHT BREAST ULTRASOUND, COMPLETE HISTORY: Nipple discharge. FINDINGS: No cystic or solid mass is present. Echotexture is unremarkable. Minimal ductal ectasia is present. IMPRESSION: No discrete mass. BI-RAD 1: NEGATIVE RECOMMENDATION: No immediate imaging follow-up needed at this time. Dictated By: ANGÉLICA CAMPOS Transcribed By: sophy villarreal Transcribed On: 06/27/2021 1:47 PM Electronically signed by: ANGÉLICA CAMPOS 06/27/2021 Thank you for referring MALA CARRANZA to [facility]. Legally authenticated by ANDRES SANDOVAL 2021-06-27 14:29:38 Procedure Note Provider, [facility] - 06/27/2021 [place] [address] Name: MALA CARRANZA Exam Date: 06/27/2021 : 2000 Age 21 Gender: F Physician: MARTÍN LARRY Facility: [facility] Facility HSV: Outpatient Exam: US BREAST LTD RT RIGHT BREAST ULTRASOUND, COMPLETE HISTORY: Nipple discharge. FINDINGS: No cystic or solid mass is present. Echotexture is unremarkable. Minimal ductal ectasia is present. IMPRESSION: No discrete mass. BI-RAD 1: NEGATIVE RECOMMENDATION: No immediate imaging follow-up needed at this time. Dictated By: ANGÉLICA CAMPOS Transcribed By: sophy villarreal Transcribed On: 06/27/2021 1:47 PM Electronically signed by: ANGÉLICA CAMPOS 06/27/2021 Thank you for referring MALA CARRANZA to [facility]. Legally authenticated by ANDRES SANDOVAL 2021-06-27 14:29:38 us Martín Larry MD IMG BI PROCEDURES Final Result documented in this encounter Visit Diagnoses Not on filedocumented in this encounter Care Teams Physiatrist Relationship Specialty Start Date End Date Celina Nunez PA [address] [place] [address] PCP - General 10/13/20 documented as of this encounter
--- OUTSIDE RECORDS SUMMARY | 2025-02-28 13:49 | XMS_ITS | Patient Health Record ---
Author Organization [facility] Address [address] [place] [address] Care Team Providers Care Community Health Nurse Staff Name Role Phone Ingrid Brooks Unavailable [phone] Allergies No Known Allergies Reason For Referral No Information Medications Medication SIG (Take, Route, Fr equency, Duration) Notes Start Date End Date Status Ashwagandha Active Fish Oil Active Vitamin D Active Vitamin Act carolee Social History Social History Additional Details Category Social Info Options Details Miscellaneous: Occupational exposure: tox ic chemicals, repetitive physical stress, infectious agents Occupation: works full-time, construction Caffeine: 1-2 cups per day Verbal abuse: childhood histor y Stress Issues FOB not involved Safety Issue none Section Notes: Former smoker, no substance or alchol use currently Plan Of Treatment No Information Medical (General) History Medical History History ICD Code Preeclampsia Blood transfusion
--- OUTSIDE RECORDS SUMMARY | 2025-02-28 13:49 | XMS_ITS | Clinical Summary ---
Author Organization Healthcare Address [address] [place] [address] Care Team Providers Care Kiln Cleaner Name Role Phone Celina Nunez Primary Care Provider [phone] Allergies No known active allergies Medications Vit-Fe Fumarate-FA (Classic ) 28-0.8 MG tablet TAKE 1 TABLET DAILY. 11/18/2019 Active methocarbamol (Robaxin) 750 MG tablet Take 1 tablet by mouth 3 times a day as needed for muscle spasms for up to 15 doses. 15 tablet 12/04/2024 Active Active Problems No known active problems Encounters Date Type Department Care Team Description 12/04/2024 2:12 AM EDT - 12/04/2024 7:26 AM EDT Emergency [facility] [address] [place] [address] Juan Soliz MD Bronner, Jonathan M, MD Closed head injury, initial encounter (Primary Dx); Abrasion of face, initial encounter; Need for Tdap vaccination; Acute pain due to injury; Multiple contusions; Elevated serum hCG; Blood alcohol level of 80-99 mg/100 ml Discharge Disposition: Home or Self Care 12/04/2024 Travel from Last 3 Months Immunizations Immunization Administration Dates Next Due Tdap 12/04/2024 Family History Medical History Relation Name Comments Cardiac disorder Maternal Grandfather Colon cancer Maternal Grandmother Liver cancer Maternal Grandmother Cardiac disorder Mother's Brother 1 Liver cancer Mother's Brother 2 Colon cancer Mother's Brother 3 Relation Name Status Comments Maternal Grandfather Maternal Grandmother Mother's Brother 1 Mother's Brother 2 Mother's Brother 3 Social History Tobacco Use Types Packs/Day Years Used Date Smoking Tobacco: Every Day Smokeless Tobacco: Never Tobacco Cessation:Ready to Q uit: No; Counseling Given: No Comments:Smokes 1 pack of cigarettes per day Alcohol Use Standard Drinks/Week Comments Yes 1 (1 standard drink = 0.6 oz pur e alcohol) Comments Unknown Sex and Gender Information Value Date Recorded Sex Assigned at Not on file Legal Sex Female 7:20 PM EDT Gender Identity Not on file Sexual Orientation Not on file Last Filed Vital Signs Vital Sign Reading Time Taken Comments Blood Pressure 126/61 12/04/2024 7:00 AM EDT Pulse 85 12/04/2024 7:00 AM EDT Temperature 36.8 C (98.2 F) 12/04/2024 5:55 AM EDT Respiratory Rate 13 12/04/2024 7:00 AM EDT Oxygen Saturation 100% 12/04/2024 7:00 AM EDT Inhaled Oxygen Concentration - - Weight 88.8 kg (195 lb 12.3 oz) 12/04/2024 2:14 AM EDT Height 170.2 cm (5' 7 ) 06/12/2021 1:37 PM EST Body Mass Index 30.66 06/12/2021 1:37 PM EST Plan of Treatment Health Maintenance Due Date Last Done Comments [facility]-Depression Screening 2000 [facility]-/Child/Adol SDOH Screenings 2000 [facility]-Hepatitis B Vaccines (3 of 3 - 3-dose series) 03/05/2005 01/08/2005, 02/03/2002 [facility]-Obesity Intervention 01/03/2006 HPV Vaccines (1 - 3-dose series) 01/03/2015 [facility]- SDOH Screenings 01/03/2018 [facility]-Adult SDOH Screenings 01/03/2018 [facility]-Pneumococcal Vaccine: Pediatrics (0 to 5 Years) and At-Risk Patients (6 to 49 Years) (1 of 2 - PCV) 01/03/2019 [facility]-Pap Smear 01/03/2021 [id number] Vaccine (1 - season) 2025 [facility]-Influenza Vaccine (#1) 2025 [facility]-DTaP,Tdap,and Td Vaccines (7 - Td or Tdap) 12/04/2034 12/04/2024, 02/07/2012, 01/06/2007, Additional history exists [facility]-Zoster Vaccines (1 of 2) 01/03/2050 02/07/2012, 02/03/2002 [facility]-HIB Vaccines Completed 01/08/2005, 02/03/2002 [facility]-IPV Vaccines Completed 07/03/2005, 01/2005, 02/03/2002 [facility]-Varicella Vaccines Completed 02/07/2012, 2001 [facility]-HIV Screening Completed 11/18/2019, 12/21/2018 [facility]-Hepatitis C Screening Completed 11/18/2019, [facility]-Hepatitis A Vaccines Aged Out No longer eligible based on patient's age to complete this topic [facility]-Rotavirus Vaccines Aged Out No lo nger eligible based on patient's age to complete this topic Procedures Procedure Name Priority Date/Time Associated Diagnosis Comments CT ANGIO ABDOMEN PELVIS STAT 12/05/19 5:[address] ANGIO CHEST STAT 12/04/2024 5:[address] CERVICAL SPINE WO IV CONTRAST STAT 12/04/2024 5:[address] FACE WO IV CONTRAST STAT 5:[address] ANGIO NECK STAT 12/04/2024 5:[address] ANGIO HEAD STAT 12/04/2024 5:[address] HEAD WO IV CONTRAST STAT 5:46 AM EDT HCG, QUANTITATIVE STAT Add-on 12/04/2024 2:4 0 AM EDT COMPREHENSIVE METABOLIC PANEL, PLASMA STAT 12/04/2024 2:40 AM EDT ETHYL ALCOHOL PLASMA STAT 12/04/2024 2:40 AM EDT TEST QUALITATIVE PLASMA STAT 12/04/2024 2:40 AM EDT BLOOD GAS PANEL, VENOUS STAT 12/05/19 2:40 AM EDT TYPE AND SCREEN STAT 12/04/2024 2:40 AM EDT PROTHROMBIN TIME(PT) / INR STAT 12/04/2024 2:40 AM EDT CBC WITH AUTO DIFFERENTIAL STAT 12/04/2024 2:40 AM EDT XR PELVIS 1 OR 2 VIEWS STAT 2:35 AM EDT XR CHEST 1 VIEW STAT 12/04/2024 2:35 AM EDT HEPATITIS C ANTIBODY W/REFLEX TO HCV QUANT PCR Routine 11/18/2019 10:09 AM EDT HIV 1/2 ANTIBODY/ANTIGEN SCREEN WITH REFLEX TO HIV I/II DIFFERENTIATION Routine 11/18/2019 10:09 AM EDT from Last 3 Months or Most Recently Relevant to Health Maintenance Results * CT Angio Abdomen Pelvis (12/04/2024 5:46 AM EDT) Anatomical Region Laterality Modality Abdomen, Pelvis Computed Tomogra phy Impressions 12/04/2024 6:48 AM EDT 1. No acute vascular pathology within the chest abdomen or pelvis. 2. No acute findings in the chest. 3. No acute findings in the abdomen or pelvis. CRITICAL RESULT: No. COMMUNICATION: Per this written report. By electronically signing this report, I, the attending physician, attest that I have personally reviewed the images/data for the above examination(s) and agree with the final edited report. Drafted by Kassandra Castaneda MD on 12/04/2024 6:11 AM Final report signed by Roverto Desai MD on 12/04/2024 6:48 AM Narrative 12/04/2024 6:48 AM EDT CLINICAL INDICATION: Chest trauma, blunt TECHNIQUE: Imaging of the chest abdomen and pelvis was performed, from thoracic inlet through pubic symphysis, using spiral technique, following administration of IV contrast, Omnipaque 350, 100 mL according to the CTA thoracic aorta/chest and CTA Abdomen/Pelvis protocol. Reformatted images in the coronal, sagittal, and oblique planes were generated from the axial data set to facilitate diagnostic accuracy. In addition, 3D images were created and reviewed. Total DLP (Dose-Length Product): 4443.90 mGy.cm (accession [id number]), 4443.90 mGy.cm (accession [id number]). Please note: The reported value represents the total of one or more individual components during the CT acquisition on this date and at this time, and as such, the same value may appear in more than one CT report depending on the interpreting/reporting physicians. COMPARISON: None. FINDINGS: Chest: Aorta/Vessels: No acute thoracic aortic pathology. No periaortic hematoma. No filling defect within the pulmonary arteries to suggest pulmonary embolism. Pleural/Pericardial Space: No pneumothorax. No pleural effusions. No pericardial effusion. Lymph Nodes: No lymphadenopathy within the chest. Lungs: Except for minimal dependent atelectasis, the lungs are clear. Mediastinum: Otherwise unremarkable. Chest wall: No chest wall hematoma or contusion. Bones: No acute fracture within the chest. Abdomen: Vessels: The abdominal aorta and its major branches are unremarkable. Liver/Gallbladder/Biliary System: The liver demonstrates homogeneous enhancement. Normal Gallbladder. No intra- or extra-hepatic biliary ductal dilatation. Spleen: The spleen enhances homogeneously. Pancreas: The pancreas enhances homogeneously. Adrenals: The adrenals are morphologically unremarkable. Kidneys: The kidneys demonstrate symmetric nephrogram and excretion. No renal or ureteral calculi. No hydronephrosis. Bowel/Mesentery: The small bowel loops are not dilated. The large bowel loops are not dilated. The appendix is visualized and normal. Lymph Nodes: No lymphadenopathy within the abdomen or pelvis. Fluid Survey: No free fluid in the abdomen. No free fluid in the pelvis. Pelvis: The pelvic viscera are unremarkable. Body Wall: Normal. Bones: No acute fracture within the abdomen or pelvis. Procedure Note Roverto Desai MD - 12/04/2024 CLINICAL INDICATION: Chest trauma, blunt TECHNIQUE: Imaging of the chest abdomen and pelvis was performed, from thoracic inletthrough pubic symphysis, using spiral technique, following administrationof IV contrast, Omnipaque 350, 100 mL according to the CTA thoracicaorta/chest and CTA Abdomen/Pelvis protocol. Reformatted images in thecoronal, sagittal, and oblique planes were generated from the axial dataset to facilitate diagnostic accuracy. In addition, 3D images were createdand reviewed. Total DLP (Dose-Length Product): 4443.90 mGy.cm (accession [id number]),4443.90 mGy.cm (accession [id number]). Please note: The reported valuerepresents the total of one or more individual components during the CTacquisition on this date and at this time, and as such, the same value mayappear in more than one CT report depending on the interpreting/reportingphysicians. COMPARISON: None. FINDINGS: Chest: Aorta/Vessels: No acute thoracic aortic pathology. No periaortic hematoma.No filling defect within the pulmonary arteries to suggest pulmonaryembolism. Pleural/Pericardial Space: No pneumothorax. No pleural effusions. Nopericardial effusion. Lymph Nodes: No lymphadenopathy within the chest. Lungs: Except for minimal dependent atelectasis, the lungs are clear. Mediastinum: Otherwise unremarkable. Chest wall: No chest wall hematoma or contusion. Bones: No acute fracture within the chest. Abdomen: Vessels: The abdominal aorta and its major branches are unremarkable. Liver/Gallbladder/Biliary System: The liver demonstrates homogeneousenhancement. Normal Gallbladder. No intra- or extra-hepatic biliaryductal dilatation. Spleen: The spleen enhances homogeneously. Pancreas: The pancreas enhances homogeneously. Adrenals: The adrenals are morphologically unremarkable. Kidneys: The kidneys demonstrate symmetric nephrogram and excretion. Norenal or ureteral calculi. No hydronephrosis. Bowel/Mesentery: The small bowel loops are not dilated. The large bowelloops are not dilated. The appendix is visualized and normal. Lymph Nodes: No lymphadenopathy within the abdomen or pelvis. Fluid Survey: No free fluid in the abdomen. No free fluid in the pelvis. Pelvis: The pelvic viscera are unremarkable. Body Wall: Normal. Bones: No acute fracture within the abdomen or pelvis. IMPRESSION: 1. No acute vascular pathology within the chest abdomen or pelvis. 2. No acute findings in the chest. 3. No acute findings in the abdomen or pelvis. CRITICAL RESULT: No. COMMUNICATION: Per this written report. By electronically signing this report, I, the attending physician, attestthat I have personally reviewed the images/data for the aboveexamination(s) and agree with the final edited report. Drafted by Kassandra Castaneda MD on 12/04/2024 6:11 AM Final report signed by Roverto Desai MD on 12/04/2024 6:48 AM Arnol Demarcus Bonilla [employer] TRA[employer] IMG CT PROCEDURES Final Result * CT Cervical Spine wo IV Contrast (12/04/2024 5:46 AM EDT) Anatomical Region Laterality Modality Spine, C-spine Computed Tomogra phy Impressions 12/04/2024 6:14 AM EDT No acute fracture or malalignment of the cervical spine. CRITICAL RESULT: No. COMMUNICATION: Per this written report. Drafted by Roverto Desai MD on 12/04/2024 6:13 AM Final report signed by Roverot Desai MD on 12/04/2024 6:14 AM Narrative 12/04/2024 6:14 AM EDT CLINICAL INDICATION: Polytrauma, blunt TECHNIQUE: Imaging of the entire cervical spine (to include the cervicothoracic junction) was performed, using spiral technique, without contrast administration. Reformatted images in the coronal and sagittal planes were generated from the axial data set to facilitate diagnostic accuracy and/or surgical planning. Total DLP (Dose-Length Product): 4443.90 mGy.cm. Please note: The reported value represents the total of one or more individual components during the CT acquisition on this date and at this time, and as such, the same value may appear in more than one CT report depending on the interpreting/reporting physicians. COMPARISON: None. FINDINGS: Vertebrae: No acute fracture. Alignment: Normal spinal alignment. Paraspinal Soft Tissues: No paraspinal hematoma. Lung Apices: No pneumothorax at the lung apices. Procedure Note Roverto Desai MD - 12/04/2024 CLINICAL INDICATION: Polytrauma, blunt TECHNIQUE: Imaging of the entire cervical spine (to include the cervicothoracicjunction) was performed, using spiral technique, without contrastadministration. Reformatted images in the coronal and sagittal planes weregenerated from the axial data set to facilitate diagnostic accuracy and/orsurgical planning. Total DLP (Dose-Length Product): 4443.90 mGy.cm. Please note: The reportedvalue represents the total of one or more individual components during theCT acquisition on this date and at this time, and as such, the same valuemay appear in more than one CT report depending on theinterpreting/reporting physicians. COMPARISON: None. FINDINGS: Vertebrae: No acute fracture. Alignment: Normal spinal alignment. Paraspinal Soft Tissues: No paraspinal hematoma. Lung Apices: No pneumothorax at the lung apices. IMPRESSION: No acute fracture or malalignment of the cervical spine. CRITICAL RESULT: No. COMMUNICATION: Per this written report. Drafted by Roverto Desai MD on 12/04/2024 6:13 AM Final report signed by Roverto Desai MD on 12/04/2024 6:14 AM Arnol Bonilla [employer] TRA[employer] IMG CT PROCEDURES Final Result * CT Angio Chest (12/04/2024 5:46 AM EDT) Anatomical Region Laterality Modality Chest Computed Tomogra phy Impressions 12/04/2024 6:48 AM EDT 1. No acute vascular pathology within the chest abdomen or pelvis. 2. No acute findings in the chest. 3. No acute findings in the abdomen or pelvis. CRITICAL RESULT: No. COMMUNICATION: Per this written report. By electronically signing this report, I, the attending physician, attest that I have personally reviewed the images/data for the above examination(s) and agree with the final edited report. Drafted by Kassandra Castaneda MD on 12/04/2024 6:11 AM Final report signed by Roverto Desai MD on 12/04/2024 6:48 AM Narrative 12/04/2024 6:48 AM EDT CLINICAL INDICATION: Chest trauma, blunt TECHNIQUE: Imaging of the chest abdomen and pelvis was performed, from thoracic inlet through pubic symphysis, using spiral technique, following administration of IV contrast, Omnipaque 350, 100 mL according to the CTA thoracic aorta/chest and CTA Abdomen/Pelvis protocol. Reformatted images in the coronal, sagittal, and oblique planes were generated from the axial data set to facilitate diagnostic accuracy. In addition, 3D images were created and reviewed. Total DLP (Dose-Length Product): 4443.90 mGy.cm (accession [id number]), 4443.90 mGy.cm (accession [id number]). Please note: The reported value represents the total of one or more individual components during the CT acquisition on this date and at this time, and as such, the same value may appear in more than one CT report depending on the interpreting/reporting physicians. COMPARISON: None. FINDINGS: Chest: Aorta/Vessels: No acute thoracic aortic pathology. No periaortic hematoma. No filling defect within the pulmonary arteries to suggest pulmonary embolism. Pleural/Pericardial Space: No pneumothorax. No pleural effusions. No pericardial effusion. Lymph Nodes: No lymphadenopathy within the chest. Lungs: Except for minimal dependent atelectasis, the lungs are clear. Mediastinum: Otherwise unremarkable. Chest wall: No chest wall hematoma or contusion. Bones: No acute fracture within the chest. Abdomen: Vessels: The abdominal aorta and its major branches are unremarkable. Liver/Gallbladder/Biliary System: The liver demonstrates homogeneous enhancement. Normal Gallbladder. No intra- or extra-hepatic biliary ductal dilatation. Spleen: The spleen enhances homogeneously. Pancreas: The pancreas enhances homogeneously. Adrenals: The adrenals are morphologically unremarkable. Kidneys: The kidneys demonstrate symmetric nephrogram and excretion. No renal or ureteral calculi. No hydronephrosis. Bowel/Mesentery: The small bowel loops are not dilated. The large bowel loops are not dilated. The appendix is visualized and normal. Lymph Nodes: No lymphadenopathy within the abdomen or pelvis. Fluid Survey: No free fluid in the abdomen. No free fluid in the pelvis. Pelvis: The pelvic viscera are unremarkable. Body Wall: Normal. Bones: No acute fracture within the abdomen or pelvis. Procedure Note Roverto Desai MD - 12/04/2024 CLINICAL INDICATION: Chest trauma, blunt TECHNIQUE: Imaging of the chest abdomen and pelvis was performed, from thoracic inletthrough pubic symphysis, using spiral technique, following administrationof IV contrast, Omnipaque 350, 100 mL according to the CTA thoracicaorta/chest and CTA Abdomen/Pelvis protocol. Reformatted images in thecoronal, sagittal, and oblique planes were generated from the axial dataset to facilitate diagnostic accuracy. In addition, 3D images were createdand reviewed. Total DLP (Dose-Length Product): 4443.90 mGy.cm (accession [id number]),4443.90 mGy.cm (accession [id number]). Please note: The reported valuerepresents the total of one or more individual components during the CTacquisition on this date and at this time, and as such, the same value mayappear in more than one CT report depending on the interpreting/reportingphysicians. COMPARISON: None. FINDINGS: Chest: Aorta/Vessels: No acute thoracic aortic pathology. No periaortic hematoma.No filling defect within the pulmonary arteries to suggest pulmonaryembolism. Pleural/Pericardial Space: No pneumothorax. No pleural effusions. Nopericardial effusion. Lymph Nodes: No lymphadenopathy within the chest. Lungs: Except for minimal dependent atelectasis, the lungs are clear. Mediastinum: Otherwise unremarkable. Chest wall: No chest wall hematoma or contusion. Bones: No acute fracture within the chest. Abdomen: Vessels: The abdominal aorta and its major branches are unremarkable. Liver/Gallbladder/Biliary System: The liver demonstrates homogeneousenhancement. Normal Gallbladder. No intra- or extra-hepatic biliaryductal dilatation. Spleen: The spleen enhances homogeneously. Pancreas: The pancreas enhances homogeneously. Adrenals: The adrenals are morphologically unremarkable. Kidneys: The kidneys demonstrate symmetric nephrogram and excretion. Norenal or ureteral calculi. No hydronephrosis. Bowel/Mesentery: The small bowel loops are not dilated. The large bowelloops are not dilated. The appendix is visualized and normal. Lymph Nodes: No lymphadenopathy within the abdomen or pelvis. Fluid Survey: No free fluid in the abdomen. No free fluid in the pelvis. Pelvis: The pelvic viscera are unremarkable. Body Wall: Normal. Bones: No acute fracture within the abdomen or pelvis. IMPRESSION: 1. No acute vascular pathology within the chest abdomen or pelvis. 2. No acute findings in the chest. 3. No acute findings in the abdomen or pelvis. CRITICAL RESULT: No. COMMUNICATION: Per this written report. By electronically signing this report, I, the attending physician, attestthat I have personally reviewed the images/data for the aboveexamination(s) and agree with the final edited report. Drafted by Kassandra Castaneda MD on 12/04/2024 6:11 AM Final report signed by Roverto Desai MD on 12/04/2024 6:48 AM Arnol Tracy Chad [employer] TRA[employer] IMG CT PROCEDURES Final Result * CT Angio Neck (12/04/2024 5:46 AM EDT) Anatomical Region Laterality Modality Carotid Artery Computed Tomogra phy Impressions 12/04/2024 6:44 AM EDT 1. No acute intracranial abnormality. 2. No acute facial bone fracture. Subtle soft tissue irregularity over the right frontal process with multiple punctate radiodensities which may represent laceration with foreign body. 3. No evidence of acute vascular injury in the head or neck. CRITICAL RESULT: No. COMMUNICATION: Per this written report. Preliminary report signed by Carol Grajeda MD on 12/04/2024 6:27 AM By electronically signing this report, I, the attending physician, attest that I have personally reviewed the images/data for the above examination(s) and agree with the final edited report. Drafted by Carol Grajeda MD on 12/04/2024 6:18 AM Final report signed by Roverto Desai MD on 12/04/2024 6:44 AM Narrative 12/04/2024 6:44 AM EDT CLINICAL INDICATION: Head trauma, moderate-severe TECHNIQUE: Routine contiguous axial CT images of the head and face were obtained without contrast administration. The axial dataset through the face was used to reconstruct images in the sagittal and coronal planes. Contrast-enhanced CT angiogram of the head and neck was obtained after administration of intravenous iodinated contrast using 0.6 mm axial slice thickness with multiplanar reformations and maximum intensity projections. In addition, 3D images were created and reviewed. AI Utilization: Not applicable. Total DLP (Dose-Length Product): 4443.90 mGy.cm (accession [id number]), 4443.90 mGy.cm (accession [id number]), 4443.90 mGy.cm (accession [id number]), 4443.90 mGy.cm (accession [id number]). Please note: The reported value represents the total of one or more individual components during the CT acquisition on this date and at this time, and as such, the same value may appear in more than one CT report depending on the interpreting/reporting physicians. COMPARISON: None. FINDINGS: CT Head without: No acute intracranial abnormality. No evidence of acute hemorrhage or ischemia. No mass, mass effect, or midline displacement of structures. Normal ventricular size and configuration. Patent basal cisterns. No displaced or depressed calvarial fractures. The mastoid air cells are clear. CT Face: Facial bones: No acute facial bone fracture. Paranasal sinuses: Mucosal thickening of the bilateral ethmoid air cells and frontal sinuses. Globes: Bilateral globes appear intact. Soft tissues: Subtle tissue irregularity with multiple punctate radiodensities over the right frontal process which may represent a laceration with foreign body. CTA Head: Suboptimal evaluation due to timing of the contrast bolus and venous contamination. There is normal vascular anatomy. There is no evidence of vascular injury, specifically no arterial stenosis, occlusion, dissection, or pseudoaneurysm. The intracranial venous structures are also fairly well opacified and appear unremarkable. CTA Neck: There is normal vascular anatomy. There is no evidence of vascular injury, specifically no arterial stenosis, occlusion, dissection, or pseudoaneurysm. There is 0% stenosis of the ICA origins by NASCET criteria. Procedure Note Roverto Desai MD - 12/04/2024 CLINICAL INDICATION: Head trauma, moderate-severe TECHNIQUE: Routine contiguous axial CT images of the head and face were obtainedwithout contrast administration. The axial dataset through the face wasused to reconstruct images in the sagittal and coronal planes. Contrast-enhanced CT angiogram of the head and neck was obtained afteradministration of intravenous iodinated contrast using 0.6 mm axial slicethickness with multiplanar reformations and maximum intensity projections.In addition, 3D images were created and reviewed. AI Utilization: Not applicable. Total DLP (Dose-Length Product): 4443.90 mGy.cm (accession [id number]),4443.90 mGy.cm (accession [id number]), 4443.90 mGy.cm (accession [id number]),4443.90 mGy.cm (accession [id number]). Please note: The reported valuerepresents the total of one or more individual components during the CTacquisition on this date and at this time, and as such, the same value mayappear in more than one CT report depending on the interpreting/reportingphysicians. COMPARISON: None. FINDINGS: CT Head without: No acute intracranial abnormality. No evidence of acute hemorrhage orischemia. No mass, mass effect, or midline displacement of structures.Normal ventricular size and configuration. Patent basal cisterns. No displaced or depressed calvarial fractures. The mastoid air cells areclear. CT Face: Facial bones: No acute facial bone fracture. Paranasal sinuses: Mucosal thickening of the bilateral ethmoid air cellsand frontal sinuses. Globes: Bilateral globes appear intact. Soft tissues: Subtle tissue irregularity with multiple punctateradiodensities over the right frontal process which may represent alaceration with foreign body. CTA Head: Suboptimal evaluation due to timing of the contrast bolus and venouscontamination. There is normal vascular anatomy. There is no evidence ofvascular injury, specifically no arterial stenosis, occlusion, dissection,or pseudoaneurysm. The intracranial venous structures are also fairly wellopacified and appear unremarkable. CTA Neck: There is normal vascular anatomy. There is no evidence of vascular injury,specifically no arterial stenosis, occlusion, dissection, orpseudoaneurysm. There is 0% stenosis of the ICA origins by NASCETcriteria. IMPRESSION: 1. No acute intracranial abnormality. 2. No acute facial bone fracture. Subtle soft tissue irregularity over theright frontal process with multiple punctate radiodensities which mayrepresent laceration with foreign body. 3. No evidence of acute vascular injury in the head or neck. CRITICAL RESULT: No. COMMUNICATION: Per this written report. Preliminary report signed by Carol Grajeda MD on 12/04/2024 6:27 AM By electronically signing this report, I, the attending physician, attestthat I have personally reviewed the images/data for the aboveexamination(s) and agree with the final edited report. Drafted by Carol Grajeda MD on 12/04/2024 6:18 AM Final report signed by Roverto Desai MD on 12/04/2024 6:44 AM Arnol Bonilla SAP TRAIN[employer] IMG CT PROCEDURES Final Result * CT Face wo IV Contrast (12/04/2024 5:46 AM EDT) Anatomical Region Laterality Modality Facial bones Computed Tomogra phy Impressions 12/04/2024 6:44 AM EDT 1. No acute intracranial abnormality. 2. No acute facial bone fracture. Subtle soft tissue irregularity over the right frontal process with multiple punctate radiodensities which may represent laceration with foreign body. 3. No evidence of acute vascular injury in the head or neck. CRITICAL RESULT: No. COMMUNICATION: Per this written report. Preliminary report signed by Carol Grajeda MD on 12/04/2024 6:27 AM By electronically signing this report, I, the attending physician, attest that I have personally reviewed the images/data for the above examination(s) and agree with the final edited report. Drafted by Carol Grajeda MD on 12/04/2024 6:18 AM Final report signed by Roverto Desai MD on 12/04/2024 6:44 AM Narrative 12/04/2024 6:44 AM EDT CLINICAL INDICATION: Head trauma, moderate-severe TECHNIQUE: Routine contiguous axial CT images of the head and face were obtained without contrast administration. The axial dataset through the face was used to reconstruct images in the sagittal and coronal planes. Contrast-enhanced CT angiogram of the head and neck was obtained after administration of intravenous iodinated contrast using 0.6 mm axial slice thickness with multiplanar reformations and maximum intensity projections. In addition, 3D images were created and reviewed. AI Utilization: Not applicable. Total DLP (Dose-Length Product): 4443.90 mGy.cm (accession [id number]), 4443.90 mGy.cm (accession [id number]), 4443.90 mGy.cm (accession [id number]), 4443.90 mGy.cm (accession [id number]). Please note: The reported value represents the total of one or more individual components during the CT acquisition on this date and at this time, and as such, the same value may appear in more than one CT report depending on the interpreting/reporting physicians. COMPARISON: None. FINDINGS: CT Head without: No acute intracranial abnormality. No evidence of acute hemorrhage or ischemia. No mass, mass effect, or midline displacement of structures. Normal ventricular size and configuration. Patent basal cisterns. No displaced or depressed calvarial fractures. The mastoid air cells are clear. CT Face: Facial bones: No acute facial bone fracture. Paranasal sinuses: Mucosal thickening of the bilateral ethmoid air cells and frontal sinuses. Globes: Bilateral globes appear intact. Soft tissues: Subtle tissue irregularity with multiple punctate radiodensities over the right frontal process which may represent a laceration with foreign body. CTA Head: Suboptimal evaluation due to timing of the contrast bolus and venous contamination. There is normal vascular anatomy. There is no evidence of vascular injury, specifically no arterial stenosis, occlusion, dissection, or pseudoaneurysm. The intracranial venous structures are also fairly well opacified and appear unremarkable. CTA Neck: There is normal vascular anatomy. There is no evidence of vascular injury, specifically no arterial stenosis, occlusion, dissection, or pseudoaneurysm. There is 0% stenosis of the ICA origins by NASCET criteria. Procedure Note Roverto Desai MD - 12/04/2024 CLINICAL INDICATION: Head trauma, moderate-severe TECHNIQUE: Routine contiguous axial CT images of the head and face were obtainedwithout contrast administration. The axial dataset through the face wasused to reconstruct images in the sagittal and coronal planes. Contrast-enhanced CT angiogram of the head and neck was obtained afteradministration of intravenous iodinated contrast using 0.6 mm axial slicethickness with multiplanar reformations and maximum intensity projections.In addition, 3D images were created and reviewed. AI Utilization: Not applicable. Total DLP (Dose-Length Product): 4443.90 mGy.cm (accession [id number]),4443.90 mGy.cm (accession [id number]), 4443.90 mGy.cm (accession [id number]),4443.90 mGy.cm (accession [id number]). Please note: The reported valuerepresents the total of one or more individual components during the CTacquisition on this date and at this time, and as such, the same value mayappear in more than one CT report depending on the interpreting/reportingphysicians. COMPARISON: None. FINDINGS: CT Head without: No acute intracranial abnormality. No evidence of acute hemorrhage orischemia. No mass, mass effect, or midline displacement of structures.Normal ventricular size and configuration. Patent basal cisterns. No displaced or depressed calvarial fractures. The mastoid air cells areclear. CT Face: Facial bones: No acute facial bone fracture. Paranasal sinuses: Mucosal thickening of the bilateral ethmoid air cellsand frontal sinuses. Globes: Bilateral globes appear intact. Soft tissues: Subtle tissue irregularity with multiple punctateradiodensities over the right frontal process which may represent alaceration with foreign body. CTA Head: Suboptimal evaluation due to timing of the contrast bolus and venouscontamination. There is normal vascular anatomy. There is no evidence ofvascular injury, specifically no arterial stenosis, occlusion, dissection,or pseudoaneurysm. The intracranial venous structures are also fairly wellopacified and appear unremarkable. CTA Neck: There is normal vascular anatomy. There is no evidence of vascular injury,specifically no arterial stenosis, occlusion, dissection, orpseudoaneurysm. There is 0% stenosis of the ICA origins by NASCETcriteria. IMPRESSION: 1. No acute intracranial abnormality. 2. No acute facial bone fracture. Subtle soft tissue irregularity over theright frontal process with multiple punctate radiodensities which mayrepresent laceration with foreign body. 3. No evidence of acute vascular injury in the head or neck. CRITICAL RESULT: No. COMMUNICATION: Per this written report. Preliminary report signed by Carol Grajeda MD on 12/04/2024 6:27 AM By electronically signing this report, I, the attending physician, attestthat I have personally reviewed the images/data for the aboveexamination(s) and agree with the final edited report. Drafted by Carol Grajeda MD on 12/04/2024 6:18 AM Final report signed by Roverto Desai MD on 12/04/2024 6:44 AM Arnol Bonilla APRN IMG CT PROCEDURES Final Result * CT Head wo IV Contrast (12/04/2024 5:46 AM EDT) Anatomical Region Laterality Modality Head Computed Tomogra phy Impressions 12/04/2024 6:44 AM EDT 1. No acute intracranial abnormality. 2. No acute facial bone fracture. Subtle soft tissue irregularity over the right frontal process with multiple punctate radiodensities which may represent laceration with foreign body. 3. No evidence of acute vascular injury in the head or neck. CRITICAL RESULT: No. COMMUNICATION: Per this written report. Preliminary report signed by Carol Grajeda MD on 12/04/2024 6:27 AM By electronically signing this report, I, the attending physician, attest that I have personally reviewed the images/data for the above examination(s) and agree with the final edited report. Drafted by Carol Grajeda MD on 12/04/2024 6:18 AM Final report signed by Roverto Desai MD on 12/04/2024 6:44 AM Narrative 12/04/2024 6:44 AM EDT CLINICAL INDICATION: Head trauma, moderate-severe TECHNIQUE: Routine contiguous axial CT images of the head and face were obtained without contrast administration. The axial dataset through the face was used to reconstruct images in the sagittal and coronal planes. Contrast-enhanced CT angiogram of the head and neck was obtained after administration of intravenous iodinated contrast using 0.6 mm axial slice thickness with multiplanar reformations and maximum intensity projections. In addition, 3D images were created and reviewed. AI Utilization: Not applicable. Total DLP (Dose-Length Product): 4443.90 mGy.cm (accession [id number]), 4443.90 mGy.cm (accession [id number]), 4443.90 mGy.cm (accession [id number]), 4443.90 mGy.cm (accession [id number]). Please note: The reported value represents the total of one or more individual components during the CT acquisition on this date and at this time, and as such, the same value may appear in more than one CT report depending on the interpreting/reporting physicians. COMPARISON: None. FINDINGS: CT Head without: No acute intracranial abnormality. No evidence of acute hemorrhage or ischemia. No mass, mass effect, or midline displacement of structures. Normal ventricular size and configuration. Patent basal cisterns. No displaced or depressed calvarial fractures. The mastoid air cells are clear. CT Face: Facial bones: No acute facial bone fracture. Paranasal sinuses: Mucosal thickening of the bilateral ethmoid air cells and frontal sinuses. Globes: Bilateral globes appear intact. Soft tissues: Subtle tissue irregularity with multiple punctate radiodensities over the right frontal process which may represent a laceration with foreign body. CTA Head: Suboptimal evaluation due to timing of the contrast bolus and venous contamination. There is normal vascular anatomy. There is no evidence of vascular injury, specifically no arterial stenosis, occlusion, dissection, or pseudoaneurysm. The intracranial venous structures are also fairly well opacified and appear unremarkable. CTA Neck: There is normal vascular anatomy. There is no evidence of vascular injury, specifically no arterial stenosis, occlusion, dissection, or pseudoaneurysm. There is 0% stenosis of the ICA origins by NASCET criteria. Procedure Note Roverto Desai MD - 12/04/2024 CLINICAL INDICATION: Head trauma, moderate-severe TECHNIQUE: Routine contiguous axial CT images of the head and face were obtainedwithout contrast administration. The axial dataset through the face wasused to reconstruct images in the sagittal and coronal planes. Contrast-enhanced CT angiogram of the head and neck was obtained afteradministration of intravenous iodinated contrast using 0.6 mm axial slicethickness with multiplanar reformations and maximum intensity projections.In addition, 3D images were created and reviewed. AI Utilization: Not applicable. Total DLP (Dose-Length Product): 4443.90 mGy.cm (accession [id number]),4443.90 mGy.cm (accession [id number]), 4443.90 mGy.cm (accession [id number]),4443.90 mGy.cm (accession [id number]). Please note: The reported valuerepresents the total of one or more individual components during the CTacquisition on this date and at this time, and as such, the same value mayappear in more than one CT report depending on the interpreting/reportingphysicians. COMPARISON: None. FINDINGS: CT Head without: No acute intracranial abnormality. No evidence of acute hemorrhage orischemia. No mass, mass effect, or midline displacement of structures.Normal ventricular size and configuration. Patent basal cisterns. No displaced or depressed calvarial fractures. The mastoid air cells areclear. CT Face: Facial bones: No acute facial bone fracture. Paranasal sinuses: Mucosal thickening of the bilateral ethmoid air cellsand frontal sinuses. Globes: Bilateral globes appear intact. Soft tissues: Subtle tissue irregularity with multiple punctateradiodensities over the right frontal process which may represent alaceration with foreign body. CTA Head: Suboptimal evaluation due to timing of the contrast bolus and venouscontamination. There is normal vascular anatomy. There is no evidence ofvascular injury, specifically no arterial stenosis, occlusion, dissection,or pseudoaneurysm. The intracranial venous structures are also fairly wellopacified and appear unremarkable. CTA Neck: There is normal vascular anatomy. There is no evidence of vascular injury,specifically no arterial stenosis, occlusion, dissection, orpseudoaneurysm. There is 0% stenosis of the ICA origins by NASCETcriteria. IMPRESSION: 1. No acute intracranial abnormality. 2. No acute facial bone fracture. Subtle soft tissue irregularity over theright frontal process with multiple punctate radiodensities which mayrepresent laceration with foreign body. 3. No evidence of acute vascular injury in the head or neck. CRITICAL RESULT: No. COMMUNICATION: Per this written report. Preliminary report signed by Carol Grajeda MD on 12/04/2024 6:27 AM By electronically signing this report, I, the attending physician, attestthat I have personally reviewed the images/data for the aboveexamination(s) and agree with the final edited report. Drafted by Carol Grajeda MD on 12/04/2024 6:18 AM Final report signed by Roverto Desai MD on 12/04/2024 6:44 AM Arnol Bonilla SAP TRA[employer] IMG CT PROCEDURES Final Result * CT Angio Head (12/04/2024 5:46 AM EDT) Anatomical Region Laterality Modality [place] Computed Tomogr aphy Impressions 12/04/2024 6:44 AM EDT 1. No acute intracranial abnormality. 2. No acute facial bone fracture. Subtle soft tissue irregularity over the right frontal process with multiple punctate radiodensities which may represent laceration with foreign body. 3. No evidence of acute vascular injury in the head or neck. CRITICAL RESULT: No. COMMUNICATION: Per this written report. Preliminary report signed by Carol Grajeda MD on 12/04/2024 6:27 AM By electronically signing this report, I, the attending physician, attest that I have personally reviewed the images/data for the above examination(s) and agree with the final edited report. Drafted by Caorl Grajeda MD on 12/04/2024 6:18 AM Final report signed by Roverto Desai MD on 12/04/2024 6:44 AM Narrative 12/04/2024 6:44 AM EDT CLINICAL INDICATION: Head trauma, moderate-severe TECHNIQUE: Routine contiguous axial CT images of the head and face were obtained without contrast administration. The axial dataset through the face was used to reconstruct images in the sagittal and coronal planes. Contrast-enhanced CT angiogram of the head and neck was obtained after administration of intravenous iodinated contrast using 0.6 mm axial slice thickness with multiplanar reformations and maximum intensity projections. In addition, 3D images were created and reviewed. AI Utilization: Not applicable. Total DLP (Dose-Length Product): 4443.90 mGy.cm (accession [id number]), 4443.90 mGy.cm (accession [id number]), 4443.90 mGy.cm (accession [id number]), 4443.90 mGy.cm (accession [id number]). Please note: The reported value represents the total of one or more individual components during the CT acquisition on this date and at this time, and as such, the same value may appear in more than one CT report depending on the interpreting/reporting physicians. COMPARISON: None. FINDINGS: CT Head without: No acute intracranial abnormality. No evidence of acute hemorrhage or ischemia. No mass, mass effect, or midline displacement of structures. Normal ventricular size and configuration. Patent basal cisterns. No displaced or depressed calvarial fractures. The mastoid air cells are clear. CT Face: Facial bones: No acute facial bone fracture. Paranasal sinuses: Mucosal thickening of the bilateral ethmoid air cells and frontal sinuses. Globes: Bilateral globes appear intact. Soft tissues: Subtle tissue irregularity with multiple punctate radiodensities over the right frontal process which may represent a laceration with foreign body. CTA Head: Suboptimal evaluation due to timing of the contrast bolus and venous contamination. There is normal vascular anatomy. There is no evidence of vascular injury, specifically no arterial stenosis, occlusion, dissection, or pseudoaneurysm. The intracranial venous structures are also fairly well opacified and appear unremarkable. CTA Neck: There is normal vascular anatomy. There is no evidence of vascular injury, specifically no arterial stenosis, occlusion, dissection, or pseudoaneurysm. There is 0% stenosis of the ICA origins by NASCET criteria. Procedure Note Roverto Desai MD - 12/04/2024 CLINICAL INDICATION: Head trauma, moderate-severe TECHNIQUE: Routine contiguous axial CT images of the head and face were obtainedwithout contrast administration. The axial dataset through the face wasused to reconstruct images in the sagittal and coronal planes. Contrast-enhanced CT angiogram of the head and neck was obtained afteradministration of intravenous iodinated contrast using 0.6 mm axial slicethickness with multiplanar reformations and maximum intensity projections.In addition, 3D images were created and reviewed. AI Utilization: Not applicable. Total DLP (Dose-Length Product): 4443.90 mGy.cm (accession [id number]),4443.90 mGy.cm (accession [id number]), 4443.90 mGy.cm (accession [id number]),4443.90 mGy.cm (accession [id number]). Please note: The reported valuerepresents the total of one or more individual components during the CTacquisition on this date and at this time, and as such, the same value mayappear in more than one CT report depending on the interpreting/reportingphysicians. COMPARISON: None. FINDINGS: CT Head without: No acute intracranial abnormality. No evidence of acute hemorrhage orischemia. No mass, mass effect, or midline displacement of structures.Normal ventricular size and configuration. Patent basal cisterns. No displaced or depressed calvarial fractures. The mastoid air cells areclear. CT Face: Facial bones: No acute facial bone fracture. Paranasal sinuses: Mucosal thickening of the bilateral ethmoid air cellsand frontal sinuses. Globes: Bilateral globes appear intact. Soft tissues: Subtle tissue irregularity with multiple punctateradiodensities over the right frontal process which may represent alaceration with foreign body. CTA Head: Suboptimal evaluation due to timing of the contrast bolus and venouscontamination. There is normal vascular anatomy. There is no evidence ofvascular injury, specifically no arterial stenosis, occlusion, dissection,or pseudoaneurysm. The intracranial venous structures are also fairly wellopacified and appear unremarkable. CTA Neck: There is normal vascular anatomy. There is no evidence of vascular injury,specifically no arterial stenosis, occlusion, dissection, orpseudoaneurysm. There is 0% stenosis of the ICA origins by NASCETcriteria. IMPRESSION: 1. No acute intracranial abnormality. 2. No acute facial bone fracture. Subtle soft tissue irregularity over theright frontal process with multiple punctate radiodensities which mayrepresent laceration with foreign body. 3. No evidence of acute vascular injury in the head or neck. CRITICAL RESULT: No. COMMUNICATION: Per this written report. Preliminary report signed by Carol Grajeda MD on 12/04/2024 6:27 AM By electronically signing this report, I, the attending physician, attestthat I have personally reviewed the images/data for the aboveexamination(s) and agree with the final edited report. Drafted by Carol Grajeda MD on 12/04/2024 6:18 AM Final report signed by Roverto Desai MD on 12/04/2024 6:44 AM Arnol Bonilla APRN IMG CT PROCEDURES Final Result * (ABNORMAL) Ethyl Alcohol Plasma (12/04/2024 2:40 AM EDT) Ethanol Plasma 88(H) <10 mg/dL 12/04/2024 3:15 AM EDT [facility] Blood Venous blood specimen / Unknown Venipuncture / Unknown 12/04/2024 2:40 AM EDT 12/04/2024 2:46 AM EDT Narrative [facility] - 12/04/2024 3:15 AM EDT Enzymatic Assay: Performed on Syd Ja. Arnol Bonilla APRN LAB BLOOD ORDERABLES Fin al Result [facility] [address] [place] [address] * PT-INR (12/04/2024 2:40 AM EDT) Prothrombin Time 14.1 12.0 - 14.3 sec 12/04/2024 2:58 AM EDT [facility] INR 1.1 0.9 - 1.1 12/04/2024 2:58 AM EDT [facility] Blood Venous blood specimen / Unknown Venipuncture / Unknown 12/04/2024 2:40 AM EDT 12/04/2024 2:43 AM EDT Narrative [facility] - 12/04/2024 2:58 AM EDT OPTIMAL INR RANGES FOR PATIENT ON ORAL ANTICOAGULANT THERAPY Prevention of venous thromboembolism INR 2.0 to 3.0 In patients with heart disease: Atrial fibrillation INR 2.0 to 3.0 Valvular heart disease INR 2.0 to 3.0 Tissue heart valves INR 2.0 to 3.0 Mechanical prosthetic valves INR 2.5 to 3[address] INR 2.5 to 3.5 Arnol Bonilla APRN LAB BLOOD ORDERABLES Fin al Result [facility] [address] [place] [address] * (ABNORMAL) CBC w/diff (12/04/2024 2:40 AM EDT) WBC Count 11.03(H) 3.70 - 10.30 10*3/uL LAB HEMATOLOGY METHOD 12/04/2024 2:45 AM EDT [facility] RBC Count 4.30 3.90 - 5.20 10*6/uL LAB HEMATOLOGY METHOD 12/04/2024 2:45 AM EDT [facility] HGB 12.3 11.2 - 15.7 g/dL LAB HEMATOLOGY METHOD 12/04/2024 2:45 AM EDT [facility] HCT 35.0 34.0 - 45.0 % LAB HEMATOLOGY METHOD 12/04/2024 2:45 AM EDT [facility] Platelet Count 203 155 - 369 10*3/uL LAB HEMATOLOGY METHOD 12/04/2024 2:45 AM EDT [facility] MCV 81 79 - 98 fL LAB HEMATOLOGY METHOD 12/04/2024 2:45 AM EDT [facility] MCH 28.6 26.0 - 32.0 pg LAB HEMATOLOGY METHOD 12/04/2024 2:45 AM EDT [facility] MCHC 35.1 30.7 - 35.5 g/dL LAB HEMATOLOGY METHOD 12/04/2024 2:45 AM EDT [facility] RDW 14.8(H) 11.5 - 14.5 % LAB HEMATOLOGY METHOD 12/04/2024 2:45 AM EDT [facility] MPV 10.2 8.8 - 12.5 fL LAB HEMATOLOGY METHOD 12/04/2024 2:45 AM EDT [facility] nRBC 0.0 <=0.0 per 100 WBCs LAB HEMATOLOGY METHOD 12/04/2024 2:45 AM EDT [facility] Differential Type Automated LAB HEMATOLOGY METHOD 12/04/2024 2:45 AM EDT [facility] Neutrophils % 73 % LAB HEMATOLOGY METHOD 12/04/2024 2:45 AM EDT [facility] Lymphocytes % 17 % LAB HEMATOLOGY METHOD 12/04/2024 2:45 AM EDT [facility] Monocytes % 8 % LAB HEMATOLOGY METHOD 12/04/2024 2:45 AM EDT [facility] Eosinophils % 1 % LAB HEMATOLOGY METHOD 12/04/2024 2:45 AM EDT [facility] Basophils % 0 % LAB HEMATOLOGY METHOD 12/04/2024 2:45 AM EDT [facility] Immature Granulocytes % 1 % LAB HEMATOLOGY METHOD 12/04/2024 2:45 AM EDT [facility] Neutrophils Absolute 8.06(H) 1.60 - 6.10 10*3/uL LAB HEMATOLOGY METHOD 12/04/2024 2:45 AM EDT [facility] Lymphocytes Absolute 1.86 1.20 - 3.90 10*3/uL LAB HEMATOLOGY METHOD 12/04/2024 2:45 AM EDT [facility] Monocytes Absolute 0.92(H) 0.30 - 0.90 10*3/uL LAB HEMATOLOGY METHOD 12/04/2024 2:45 AM EDT [facility] Eosinophils Absolute 0.10 0.00 - 0.50 10*3/uL LAB HEMATOLOGY METHOD 12/04/2024 2:45 AM EDT [facility] Basophils Absolute 0.04 0.00 - 0.10 10*3/uL LAB HEMATOLOGY METHOD 12/04/2024 2:45 AM EDT [facility] Immature Granulocytes Absolute 0.05 0.00 - 0.06 10*3/uL LAB HEMATOLOGY METHOD 12/04/2024 2:45 AM EDT [facility] Blood Venous blood specimen / Unknown Venipuncture / Unknown 12/04/2024 2:40 AM EDT 12/04/2024 2:43 AM EDT Narrative [facility] - 12/04/2024 2:45 AM EDT Therapeutic decision making should be based on absolute values, rather than percentages. [facility]olkarey Bonilla SAP TRAINER LAB BLOOD ORDERABLES Fin al Result Performing Organization Address City/[facility]/ZIP Co de Phone Number [facility] [address] [place] [address] * Type and screen (12/04/2024 2:40 AM EDT) ABO/Rh B Positive 12/04/2024 2:25 AM EDT BLOOD BANK Antibody Screen Negative 12/04/2024 2:25 AM EDT BLOOD BANK Specimen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
--- NOTE | 2025-02-28 13:51 | ED_ITS ---
<Statement entered by Abbey Amezcua DO - 02/28/25 19:12> I was consulted by the YVON, and we discussed the complexity of problems being addressed. I approved the treatment plan and management plan of this patient's care in the emergency department, thus performing a substantive portion of medical decision making. Abbey Amezcua DO Discharge Plan Disposition Patient Disposition: Home, Self-Care Prescriptions Prescriptions: No Action aspirin [Adult Low Dose Aspirin] 81 mg tablet,delayed release (DR/EC) 81 mg PO DAILY Qty: 30 5RF ranolazine 500 mg tablet extended release 12 hr 500 mg PO BID Qty: 60 3RF albuterol sulfate 90 mcg/actuation HFA aerosol inhaler 1 inh inhalation Q6H Qty: 6.7 3RF oseltamivir [Tamiflu] 75 mg capsule 75 mg PO Q12H 5 Days Qty: 10 0RF ondansetron 4 mg tablet,disintegrating 4 mg PO Q8H PRN (Reason: nausea and vomiting) Qty: 10 0RF Referrals Follow up/Referrals: Celina Nunez PA [Primary Care Provider, Medical] - See instructions Activity Restrictions/Add. Instructions Additional Instructions/Restrictions: Please follow with Dr. Skaggs as we discussed. If any other problems or concerns please return to the ED Clinical Impressions Clinical Impression: Viral infection Stand Alone Forms Stand Alone Forms: Work/School Release Instructions Patient Instructions: DI for Viral Syndrome Print Language Print Language: Luxembour[place] Discharge ED Provider: Abbey Amezcua General Adult HPI <Abbey Amezcua DO - Last Filed: 02/28/25 14:01> General Chief complaint: Upper Respiratory Infection Stated complaint: sore throat, headache Time Seen by Provider: 02/28/25 13:51 Mode of Arrival: Ambulatory Source of Information: Patient Description of Symptoms (Recalled from ER Triage Doc. by RN): pt presents to ED c/o throat pain and aching all over x 1 week. pt reports dry cough. pt states she has had sharp pains intermittent in her chest and legs. pt denies pain in her chest at this time. History of Present Illness HPI narrative: This is a 25-year-old female with history of heart failure with reduced ejection fraction, most recent echocardiogram in April 2023 with ejection fraction of 47%, who presents emergency department with complaints of sore throat, diffuse myalgias, dry cough, intermittent sharp chest pains and leg pains, and intermittent right arm pain. Denies possibility of . No recent fevers. Reportedly eating and drinking as normal. Denies any vomiting, diarrhea, or dysuria. Related Data Previous Rx's ?Medication ?Instructions ?Recorded albuterol sulfate 90 mcg/actuation 1 inh inhalation Q6 H #6.7 grams 05/12/23 aerosol inhaler aspirin 81 mg tablet,delayed 81 mg PO DAILY #30 tabs 1 07/13/22 release (Adult Low Dose Aspirin) ranolazine 500 mg tablet,extended 500 mg PO BID #60 ta bs 05/12/23 release,12 hr ondansetron 4 mg disintegrating 4 mg PO Q8H PRN nausea and 07/09/23 tablet vomiting #10 tabs oseltamivir 75 mg capsule (Tamiflu) 75 mg PO Q12H 5 da ys #10 caps 07/09/23 Allergies Allergy/AdvReac Type Severity Reaction Status Date / Time No Known Allergies Allergy Verified 05/12/23 15:06 [facility] <Abbey Amezcua, DO - Last Filed: 02/28/25 14:01> [facility] Disclaimer: The information contained in this section may have been updated after the patient was seen, as this information can be updated by other users. Medical History (Updated 02/28/25 @ 15:36 by Nina Farris (ED), MACHINE APPLICATOR [employer]) Chest pain Spontaneous History of hemorrhage History of pre-eclampsia Anxiety Complete miscarriage Abdominal pain Surgical History No history of previous surgery Family History Other Alcoholism Cancer Coronary artery disease Diabetes Heart attack Hypertension Stroke Substance abuse Thyroid disorder Social History Smoking Status: Never smoker alcohol intake: never substance use type: denies use current occupational status: employed Travel in the last 8 weeks?: None household members: children housing: apartment Have you lived/traveled outside [place] in past 30 days?: No Contact w/someone who lives/traveled outside [place] past 30 days?: No Exposure to someone with infectious disease in past 14 days?: No Do you have a fever (greater than 100.4 F or 38 C)?: No Have you tested positive for COVID-19?: No Exposed to someone with COVID-19 in past 14 days?: No Do you have a sore throat?: No Do you have a cough?: No Do you have any weakness?: No Do you have any diarrhea?: No Are you experiencing any unusual bleeding?: No Do you have any muscle aches/pain?: No Do you have any abdominal pain?: No Are you experiencing loss of taste or smell?: No Other Medical History Have you received the Flu Vaccine for this season: No Have you received the Pneumonia Vaccine: No <Abbey Amezcua DO - Last Filed: 02/28/25 14:01> ROS Obtained: Yes All systems reviewed & no additional complaints except as documented Physical Exam <Abbey Amezcua DO - Last Filed: 02/28/25 14:01> General General appearance: alert and in no apparent distress Head Head exam: atraumatic and normocephalic Eye Eye exam: Present PERRL ENT ENT exam: Present mucous membranes moist Neck Neck exam: Present normal inspection Chest Chest inspection: Present symmetric chest wall rise; Absent tenderness Respiratory Respiratory exam: Present normal lung sounds bilaterally; Absent respiratory distress, wheezes or accessory muscle use Cardiovascular Cardiovascular exam: Present regular rate and normal rhythm Abdominal Exam Abdominal exam: Present soft; Absent distention or tenderness Extremities Exam Extremities exam: Present normal inspection; Absent tenderness Neurological Exam Neurological exam: Present alert and oriented X3 Psychiatric Psychiatric exam: Present normal affect Skin Skin exam: Present warm and dry Medical Decision Making <Abbey Amezcua DO - Last Filed: 02/28/25 14:01> Medical Records Screening: Per USPSTF and CDC recommendations, given the prevalence of disease in our region, it is our hospital?s policy to screen for HIV and viral Hepatitis for all patients aged 18 and over and those with ongoing risk factors. Dionicio Inquiry Pt receiving controlled substance: No Dionicio was queried for this patient: No Vital Signs: 02/28/25 13:39 02/28/25 15:43 Temperature 98.2 F 98.2 F Temperature Source Oral Pulse Rate 80 Pulse Rate [Right Radial] 87 Respiratory Rate 18 20 Blood Pressure 137/69 Blood Pressure [Right Arm] 141/88 H Blood Pressure Mean [Right Arm] 105 Blood Pressure Source [Right Arm] Automatic Cuff Blood Pressure Position [Right Arm] Sitting 02 Sat by Pulse Oximetry 98 Oxygen Delivery Method Room Air Room Air Lab Data Lab Results 02/28/25 13:12: D-Dimer 0.57 H, TSH 1.98 02/28/25 13:44: WBC 5.8, RBC 4.20, Hgb 12.0 L, Hct 35.2 L, MCV 83.8, MCH 28.6, MCHC 34.1, RDW 13.8, Plt Count 166, MPV 11.0 H, Neut % (Auto) 60.2, Lymph % (Auto) 25.3, Latimer % (Auto) 11.3 H, Eos % (Auto) 2.7, Baso % (Auto) 0.3, Neut # (Auto) 3.5, Lymph # (Auto) 1.5, Latimer # (Auto) 0.7, Eos # (Auto) 0.2, Baso # (Auto) 0.0 02/28/25 13:52: Sodium 139, Potassium 3.9, Chloride 104, Carbon Dioxide 26, Anion Gap 12.9, BUN 12, Creatinine 0.60, Estimated Creat Clear 180, Estimated GFR 122, Est GFR ( Amer) 147, Glucose 91, Calcium 9.1, Magnesium 1.7, Total Bilirubin 0.4, AST 30, ALT 23, Alkaline Phosphatase 85, Troponin I < 0.01, Total Protein 7.4, Albumin 4.2, Globulin 3.2, Albumin/Globulin Ratio 1.3, Lipase 96, Serum HCG, Qual Negative, SARS-CoV-2 (PCR) Not detected, Influenza A Untype (PCR) Not detected, Influenza Type B (PCR) Not detected, Group A Strep Rapid Negative 02/28/25 13:44 02/28/25 13:52 Orders (Tests/Meds): ED MEDICATIONS Discontinued Medications Generic Name Dose Route Start Last Admin Trade Name Imerq PRN Reason Stop Dose Admin Acetaminophen 1,000 mg 02/28/25 13:56 02/28/25 14:02 Acetaminophen 500mg Tab PO 02/28/25 13:57 1,000 mg ONCE ONE Administration Aspirin 325 mg 02/28/25 13:49 02/28/25 13:58 Aspirin 325mg Tablet PO 02/28/25 13:50 325 mg ONCE ONE Administration Ibuprofen 400 mg 02/28/25 13:56 02/28/25 14:03 Ibuprofen 400 Mg Tablet PO 02/28/25 13:57 400 mg ONCE ONE Administration Ketorolac Tromethamine 30 mg 02/28/25 14:18 02/28/25 14:23 Ketorolac 30mg/Ml Vial IM 02/28/25 14:19 30 mg ONCE ONE Administration ORDERS Category Date Time Status Chest XR -- portable [XR chest portable] Stat Exams 02/28/25 13:49 Completed Complete Blood Count Auto Diff Stat Lab 02/28/25 13:44 Completed Comprehensive Metabolic Panel Stat Lab 02/28/25 13:52 Completed D-Dimer Stat Lab 02/28/25 13:12 Completed Lipase Stat Lab 02/28/25 13:52 Completed Magnesium Stat Lab 02/28/25 13:52 Completed Rapid PCR Covid and Flu A/B Stat Lab 02/28/25 13:52 Completed Rapid Strep Scrn Group A [Strep Scrn Group A (Rapid)] Lab 02/28/25 13:52 Completed Stat Serum Beta HCG [HCG Qualitative, Serum] Stat Lab 02/28/25 13:52 Completed TSH [Thyroid Stimulating Hormone] Stat Lab 02/28/25 13:12 Completed Troponin I Stat Lab 02/28/25 13:52 Completed Strep Screen Confirmation Stat Micro 02/28/25 13:52 Received ECG Data Tracing #1: I reviewed this ECG and interpreted as documented below: Normal sinus rhythm at a rate of 87. Normal intervals. Normal axis. No acute ischemic changes. <Nina Farris (ED), MACHINE APPLICATOR C[employer]ER - Last Filed: 02/28/25 17:12> Vital Signs: 02/28/25 13:39 02/28/25 15:43 Temperature 98.2 F 98.2 F Temperature Source Oral Pulse Rate 80 Pulse Rate [Right Radial] 87 Respiratory Rate 18 20 Blood Pressure 137/69 Blood Pressure [Right Arm] 141/88 H Blood Pressure Mean [Right Arm] 105 Blood Pressure Source [Right Arm] Automatic Cuff Blood Pressure Position [Right Arm] Sitting 02 Sat by Pulse Oximetry 98 Oxygen Delivery Method Room Air Room Air Lab Data Lab Results 02/28/25 13:12: D-Dimer 0.57 H, TSH 1.98 02/28/25 13:44: WBC 5.8, RBC 4.20, Hgb 12.0 L, Hct 35.2 L, MCV 83.8, MCH 28.6, MCHC 34.1, RDW 13.8, Plt Count 166, MPV 11.0 H, Neut % (Auto) 60.2, Lymph % (Auto) 25.3, Latimer % (Auto) 11.3 H, Eos % (Auto) 2.7, Baso % (Auto) 0.3, Neut # (Auto) 3.5, Lymph # (Auto) 1.5, Latimer # (Auto) 0.7, Eos # (Auto) 0.2, Baso # (Auto) 0.0 02/28/25 13:52: Sodium 139, Potassium 3.9, Chloride 104, Carbon Dioxide 26, Anion Gap 12.9, BUN 12, Creatinine 0.60, Estimated Creat Clear 180, Estimated GFR 122, Est GFR ( Amer) 147, Glucose 91, Calcium 9.1, Magnesium 1.7, Total Bilirubin 0.4, AST 30, ALT 23, Alkaline Phosphatase 85, Troponin I < 0.01, Total Protein 7.4, Albumin 4.2, Globulin 3.2, Albumin/Globulin Ratio 1.3, Lipase 96, Serum HCG, Qual Negative, SARS-CoV-2 (PCR) Not detected, Influenza A Untype (PCR) Not detected, Influenza Type B (PCR) Not detected, Group A Strep Rapid Negative Orders (Tests/Meds): ED MEDICATIONS Discontinued Medications Generic Name Dose Route Start Last Admin Trade Name Imerq PRN Reason Stop Dose Admin Acetaminophen 1,000 mg 02/28/25 13:56 02/28/25 14:02 Acetaminophen 500mg Tab PO 02/28/25 13:57 1,000 mg ONCE ONE Administration Aspirin 325 mg 02/28/25 13:49 02/28/25 13:58 Aspirin 325mg Tablet PO 02/28/25 13:50 325 mg ONCE ONE Administration Ibuprofen 400 mg 02/28/25 13:56 02/28/25 14:03 Ibuprofen 400 Mg Tablet PO 02/28/25 13:57 400 mg ONCE ONE Administration Ketorolac Tromethamine 30 mg 02/28/25 14:18 02/28/25 14:23 Ketorolac 30mg/Ml Vial IM 02/28/25 14:19 30 mg ONCE ONE Administration ORDERS Category Date Time Status Chest XR -- portable [XR chest portable] Stat Exams 02/28/25 13:49 Completed Complete Blood Count Auto Diff Stat Lab 02/28/25 13:44 Completed Comprehensive Metabolic Panel Stat Lab 02/28/25 13:52 Completed D-Dimer Stat Lab 02/28/25 13:12 Completed Lipase Stat Lab 02/28/25 13:52 Completed Magnesium Stat Lab 02/28/25 13:52 Completed Rapid PCR Covid and Flu A/B Stat Lab 02/28/25 13:52 Completed Rapid Strep Scrn Group A [Strep Scrn Group A (Rapid)] Lab 02/28/25 13:52 Completed Stat Serum Beta HCG [HCG Qualitative, Serum] Stat Lab 02/28/25 13:52 Completed TSH [Thyroid Stimulating Hormone] Stat Lab 02/28/25 13:12 Completed Troponin I Stat Lab 02/28/25 13:52 Completed Strep Screen Confirmation Stat Micro 02/28/25 13:52 Received Medical Decision Narrative: patient is a 25-year-old presenting to the emergency department for evaluation of chest pain, sore throat, headache and weakness all over. Patient is hemodynamically stable and nontoxic-appearing upon arrival, afebrile. Differential diagnosis includes viral illness, ACS, among other. Workup will be conducted with hematologic labs, specific imaging, provocative tests. Initial inventions include crystalloid bolus, analgesics, antibiotics, etc.. Initial workup reviewed by me hematologic labs are remarkable for normal troponin, otherwise normal labs. Years criteria shows a PE is excluded. Imaging informally interpreted by me and remarkable for nothing acute. Patient and I discussed seeing Dr. Skaggs in follow-up as well as following up with her PCP. Patient is safe for discharge home. Critical Care <Nina Farris (ED), MACHINE APPLICATOR [employer]ER - Last Filed: 02/28/25 17:12> Critical Care Time Critical Care Time: No
[2025-02-28] MEDS: ASPIRIN 325MG TABLET 325 MG PO (13:58)
[2025-02-28 14:02] LABS: Coronavirus 19, PCR Not Detected (NotDetected); Influenza A, PCR Not Detected (NotDetected); Influenza B, PCR Not Detected (NotDetected)
[2025-02-28] MEDS: ACETAMINOPHEN 500MG TAB 1000 MG PO (14:02)
[2025-02-28] MEDS: IBUPROFEN 400 MG TABLET PO (14:03)
[2025-02-28 14:04] LABS: Hematocrit 35.2 % (37.0-47.0); Hemoglobin 12.0 g/dL (12.2-16.2); Immature Granulocytes % 0.2 %; Mean Corpuscular HGB Conc 34.1 g/dL (31.8-35.4); Mean Corpuscular Hemoglobin 28.6 pg (27.0-31.2); Mean Corpuscular Volume 83.8 fl (81-99); Nucleated Red Blood Cells % 0 %; Platelet Count 166 K/mm3 (142-424); Red Blood Count 4.20 M/mm3 (4.20-5.40); Red Cell Distribution Width-SD 42.1 fL; White Blood Count 5.8 K/mm3 (4.8-10.8)
[2025-02-28 14:14] LABS: Strep Scrn Group A (Rapid) Negative (Negative)
[2025-02-28 14:15] LABS: HCG Qualitative, Serum Negative (Negative)
[2025-02-28] MEDS: KETOROLAC 30MG/ML VIAL 30 MG IM (14:23)
[2025-02-28 14:24] LABS: Lipase 96 U/L (23-300); Magnesium 1.7 mg/dl (1.6-2.3)
[2025-02-28 14:25] LABS: Alanine Aminotransferase 23 U/L (12-78); Albumin Level 4.2 g/dl (3.5-5.0); Albumin/Globulin Ratio 1.3 (1.1-1.8); Alkaline Phosphatase 85 U/L (38-126); Anion Gap 12.9 mEq/L (5-15); Aspartate Amino Transferase 30 U/L (14-36); Bilirubin,Total 0.4 mg/dl (0.2-1.3); Blood Urea Nitrogen 12 mg/dl (7-17); Calcium 9.1 mg/dl (8.4-10.2); Carbon Dioxide 26 mmol/L (22.0-30.0); Chloride 104 mmol/L (98-107); Creatinine Clearance Estimated 180 mL/min (50-200); Creatinine,Serum 0.60 mg/dl (0.52-1.04); Estimated Glomerular Filt Rate 122 ml/min (>60); GFR (African American) 147 ML/MIN (>60); Globulin 3.2 g/dL (1.3-3.2); Glucose 91 mg/dl (74-100); Potassium 3.9 mmoL/L (3.5-5.1); Sodium 139 mmol/L (136-145); Total Protein,Serum 7.4 g/dl (6.3-8.2)
[2025-02-28 14:30] LABS: D-Dimer 0.57 ug/mL (0.0-0.5)
[2025-02-28 14:40] LABS: Troponin I < 0.01 ng/ml (0.00-0.034)
[2025-02-28 14:57] LABS: Thyroid Stimulating Hormone 1.98 uIU/mL (0.465-4.68)
[2025-02-28 15:43] VITALS: BP 137/69; PULSE 80; RESP 20; TEMP 36.8; O2SAT 98
== END 2025-02-28 15:46 | disposition home or self-care (01) ==
PROVIDERS: Nurse Practitioner; Emergency Provider Student in an Organized Health Care Education/Training Program; PCP Physician Assistant
DX: R51.9 Headache, unspecified (principal); R07.0 Pain in throat; B34.9 Viral infection, unspecified
CPT/HCPCS: 71045; 80053; 83690; 83735; 84443; 84484; 84703; 85025; 85378; 87430; 87636; 93005; 96372; 99283; 99284; J1885